=== PATIENT | male | born 1955 | race Caucasian/White ===

== ENCOUNTER → 2018-02-05 13:32 | Outpatient (CLI) | payer BC, SELFPAY ==
--- NOTE | 2018-02-05 13:39 | XR_ITS ---
XR foot LT min 3V HISTORY: ITS.REASON: LEFT GREAT TOE PAIN ORDERING PHYSICIAN: Shravan Damon MD PATIENT AGE: 62 years COMPARISON: None FINDINGS: There are moderate osteoarthritic changes of the first metatarsophalangeal joint. No fracture or dislocation. Normal alignment. IMPRESSION: Moderate osteoarthritis of the first metatarsophalangeal joint
[2018-02-05 13:50] LABS: Microscopic, Urine URINE MICROSCOPIC (MICROSCOPIC)
[2018-02-05 14:05] LABS: Appearance,Urine CLEAR (Clear); Bilirubin,Urine Negative (Negative); Blood, Urine Negative (Negative); Color,Urine YELLOW (Yellow); Glucose,Urine (UA) Negative (Negative); Ketones,Urine Negative (Negative); Leukocyte Esterase,Urine Negative (Negative); Nitrate,Urine Negative (Negative); Protein,Urine Negative (Negative); Specific Gravity, Urine 1.025 (1.005-1.030); Urobilinogen,Urine 0.2 EU/dl (0.2)
[2018-02-05 14:14] LABS: Bacteria,Urine Trace /lpf; RBC,Urine Occasional #/hpf (0-3); Squamous Epithelial Cell,Urine Occasional #/hpf (0-5); WBC,Urine Occasional #/hpf (0-3)
[2018-02-05 14:19] LABS: Basophils # 0.1 K/mm3 (0-0.2); Eosinophils # 0.2 K/mm3 (0.0-0.4); Eosinophils % 2.9 % (0.1-12.0); Hematocrit 47.7 % (42.0-52.0); Lymphocytes # 1.8 K/mm3 (0.7-4.5); Lymphocytes % 24.8 K/mm3 (10-50); Mean Corpuscular HGB Conc 33.6 g/dL (31.8-35.4); Mean Corpuscular Hemoglobin 29.8 pg (27.0-31.2); Mean Corpuscular Volume 88.9 fl (80-94); Monocytes # 0.6 K/mm3 (0.1-1.0); Monocytes % 7.8 % (1.7-9.3); Neutrophils # 4.6 K/mm3 (1.8-7.8); Neutrophils % 63.5 % (37.0-80.0); Platelet Count 252 K/mm3 (142-424); Red Blood Count 5.37 M/mm3 (4.60-6.20); Red Cell Distribution Width 13.8 % (11.5-17.5); White Blood Count 7.2 K/mm3 (4.8-10.8)
[2018-02-05 15:13] LABS: Alanine Aminotransferase 31 U/L (12-78); Albumin Level 3.9 gm/dL (3.4-5.0); Albumin/Globulin Ratio 1.2 (1.1-1.8); Alkaline Phosphatase 115 U/L (46-116); Anion Gap 11.8 mEq/L (5-15); Aspartate Amino Transferase 14 U/L (15-37); Bilirubin,Total 0.5 mg/dL (0.2-1.0); Blood Urea Nitrogen 13 mg/dL (7-18); Calcium 8.9 mg/dL (8.5-10.1); Carbon Dioxide 30 mmol/L (21.0-32.0); Chloride 102 mmol/L (98-107); Creatinine,Serum 1.41 mg/dL (0.70-1.30); Estimated Glomerular Filt Rate 51 ml/min (>60); GFR (African American) 61 ML/MIN (>60); Globulin 3.3 gm/dl (1.3-3.2); Potassium 3.8 mmoL/L (3.5-5.1); Sodium 140 mmol/L (136-145); Total Protein,Serum 7.2 gm/dL (6.4-8.2)
[2018-02-05 15:27] LABS: Glucose 107 mg/dL (74-106)
== END ==
PROVIDERS: PCP Internal Medicine Adolescent Medicine; Visit Provider Internal Medicine Adolescent Medicine
DX: M79.675 Pain in left toe(s) (principal); R31.0 Gross hematuria
CPT/HCPCS: 36415; 73630; 80053; 81001; 85025

== ENCOUNTER → 2019-08-28 12:27 | Outpatient (CLI) | payer BC, SELFPAY ==
[2019-08-28 12:46] LABS: Microscopic, Urine URINE MICROSCOPIC (MICROSCOPIC)
--- NOTE | 2019-08-28 13:04 | XR_ITS ---
PROCEDURE: XR CHEST 2V CLINICAL HISTORY: HTN, PREOP Hypertension COMPARISON: No exams were available for comparison FINDINGS: The cardiomediastinal silhouette and pulmonary vascularity are within normal limits. There is mild pleural thickening in the right apex. Left hemidiaphragm is slightly elevated with mild left basilar atelectasis. The remaining lungs are clear. Degenerative changes of the thoracic spine IMPRESSION: Slightly elevated left hemidiaphragm with left basilar atelectasis Dictated by: Fausto Whitley MD 08/28/2019 14:03 Electronically signed by Fausto Whitley MD in [place] 08/28/2019 14:03
[2019-08-28 13:30] LABS: Basophils # 0.1 K/mm3 (0-0.2); Basophils % 0.8 % (0.1-2.0); Eosinophils # 0.1 K/mm3 (0.0-0.4); Hematocrit 44.4 % (42.0-52.0); Hemoglobin 14.8 g/dL (14.1-18.0); Lymphocytes # 1.5 K/mm3 (0.7-4.5); Lymphocytes % 27.4 % (10-50); Mean Corpuscular HGB Conc 33.4 g/dL (31.8-35.4); Mean Corpuscular Volume 89.8 fl (80-94); Mean Platelet Volume 7.5 fl (7.4-10.4); Monocytes # 0.3 K/mm3 (0.1-1.0); Monocytes % 6.2 % (1.7-9.3); Neutrophils # 3.4 K/mm3 (1.8-7.8); Neutrophils % 63.6 % (37.0-80.0); Platelet Count 229 K/mm3 (142-424); Red Blood Count 4.94 M/mm3 (4.60-6.20); Red Cell Distribution Width 13.6 % (11.5-17.5); White Blood Count 5.4 K/mm3 (4.8-10.8)
[2019-08-28 14:23] LABS: Hemoglobin A1C 5.9 % (4.0-6.0)
[2019-08-28 15:16] LABS: Chloride 98 mmol/L (98-107); Sodium 139 mmol/L (136-145)
[2019-08-28 15:19] LABS: Alanine Aminotransferase 38 U/L (12-78); Albumin Level 4.4 g/dl (3.5-5.0); Albumin/Globulin Ratio 1.8 (1.1-1.8); Alkaline Phosphatase 92 U/L (38-126); Aspartate Amino Transferase 29 U/L (17-59); Bilirubin,Total 0.6 mg/dl (0.2-1.3); Blood Urea Nitrogen 14 mg/dl (9-20); Carbon Dioxide 31 mmol/L (22.0-30.0); Estimated Glomerular Filt Rate 51 ml/min (>60); GFR (African American) 62 ML/MIN (>60); Globulin 2.5 g/dL (1.3-3.2); Glucose 95 mg/dl (74-100); Total Protein,Serum 6.9 g/dl (6.3-8.2)
[2019-08-28 19:04] LABS: Appearance,Urine CLEAR (Clear); Bilirubin,Urine Negative (Negative); Blood, Urine Negative (Negative); Color,Urine YELLOW (Yellow); Glucose,Urine (UA) Negative (Negative); Ketones,Urine Negative (Negative); Leukocyte Esterase,Urine Negative (Negative); Nitrate,Urine Negative (Negative); Protein,Urine Negative (Negative); Specific Gravity, Urine 1.025 (1.005-1.030); Urobilinogen,Urine 0.2 EU/dl (0.2)
[2019-08-28 19:57] LABS: Bacteria,Urine Trace /lpf; Squamous Epithelial Cell,Urine Occasional #/hpf (0-5); WBC,Urine Occasional #/hpf (0-3)
== END ==
PROVIDERS: Orthopaedic Surgery; PCP Internal Medicine Adolescent Medicine; Visit Provider Internal Medicine Adolescent Medicine
DX: Z01.818 Encounter for other preprocedural examination (principal); I10 Essential (primary) hypertension; M25.561 Pain in right knee; S89.91XA Unspecified injury of right lower leg, initial encounter
CPT/HCPCS: 36415; 71046; 80053; 81001; 83036; 85025

== ENCOUNTER → 2020-01-08 10:51 | Outpatient (CLI) | payer BC, SELFPAY ==
--- NOTE | 2020-01-08 10:56 | XR_ITS ---
PROCEDURE: XR CHEST 2V CLINICAL HISTORY: ACUTE THORACIC MYOFASCIAL STRAIN Stabbing pain. COMPARISON: XR CHEST 2V from 08/28/2019 FINDINGS: No acute bony abnormalities. The cardiomediastinal silhouette and pulmonary vascularity are within normal limits. Atherosclerotic tortuosity of the aortic arch. The lungs are clear without infiltrates, suspicious nodules, or pleural effusions. There is left basilar minimal atelectasis. Osteopenia. Multilevel mild/moderate degenerative thoracic spondylosis. Mildly increased thoracic kyphosis. IMPRESSION: 1. No acute findings. Dictated by: Prachi Madrid 01/08/2020 12:18 Electronically signed by Prachi Madrid in [facility] 01/08/2020 12:18
== END ==
PROVIDERS: PCP Internal Medicine Adolescent Medicine; Visit Provider Internal Medicine Adolescent Medicine
DX: S29.019A Strain of muscle and tendon of unspecified wall of thorax, initial encounter (principal)
CPT/HCPCS: 71046

== ENCOUNTER → 2021-03-22 13:00 | Outpatient (CLI) | payer MEDICARE, OTHER, SELFPAY ==
--- NOTE | 2021-03-22 13:16 | XR_ITS ---
PROCEDURE: XR ACUTE ABDOMEN SERIES CLINICAL INDICATION: LOWER ABD PAIN, FEVER UNSPECIFIED FEVER CAUSE COMPARISON: CR XR CHEST 2V from 01/08/[address] ABDOMEN PELVIS WO CON from 03/22/2021 FINDINGS: Minimal atelectatic change left lung base and right midlung. Upright and supine views of the abdomen demonstrates a few scattered air-fluid levels within large and small bowel. Bowel loops do not appear distended. No free air apparent. No obvious renal calculi or acute bony anomalies. IMPRESSION: Nonspecific bowel gas pattern. No evidence of intestinal obstruction or free air. Mild left basilar and right midlung atelectatic change Dictated by: Fausto Whitley MD 03/22/2021 15:06 Fausto Whitley MD in [facility] 03/22/2021 15:06
--- NOTE | 2021-03-22 13:17 | CT_ITS ---
PROCEDURE: CT ABDOMEN PELVIS WO CON CLINICAL INDICATION: LOWER ABD PAIN, FEVER UNSPECIFIED FEVER CAUSE COMPARISON: No exams were available for comparison TECHNIQUE: Axial images obtained with sagittal and coronal reformats. All CT scans at the facility use one or more dose reduction, viz: automated exposure control, ma/kV adjustment per patient size (including targeted exams where dose is matched to indication, i.e. head), or iterative reconstruction technique. FINDINGS: LOWER THORAX: Minor atelectatic change or fibrosis noted in the left lung base anteriorly. Coronary artery calcification noted. ABDOMEN & PELVIS: There is diffuse fatty liver infiltration. And isodense oval areas present in the right hepatic lobe laterally measuring 3 x 2.5 cm near water density consistent with a cyst. Borderline splenomegaly at 13 cm. Small hiatal hernia. The adrenal glands and pancreas have an unremarkable appearance. There are bilateral renal cysts measuring up to 4 cm on the right and 1.2 cm on the left. No renal or ureteral calculi. No hydronephrosis. There are small periaortic lymph nodes. No intestinal obstruction or free air. No evidence of appendicitis. There is colonic diverticulosis but no evidence of diverticulitis. Diverticula are present from the splenic flexure through the sigmoid region. No pelvic mass or abnormal fluid collection. No acute bony findings. IMPRESSION: 1. No acute finding. 2. Fatty liver with 3 cm hepatic cyst 3. Bilateral renal cysts 4. Colonic diverticulosis. No evidence of diverticulitis. Dictated by: Fausto Whitley MD 03/22/2021 14:47 Fausto Whitley MD in [place] 03/22/2021 14:47
[2021-03-22 13:22] LABS: Basophils % 1.1 % (0.1-2.0); Eosinophils # 0.1 K/mm3 (0.0-0.4); Eosinophils % 2.5 % (0.1-12.0); Hematocrit 48.6 % (42.0-52.0); Hemoglobin 16.6 g/dL (14.1-18.0); Lymphocytes % 27.1 % (10-50); Mean Corpuscular HGB Conc 34.1 g/dL (31.8-35.4); Mean Corpuscular Hemoglobin 30.9 pg (27.0-31.2); Mean Corpuscular Volume 90.6 fl (80-94); Mean Platelet Volume 7.6 fl (7.4-10.4); Monocytes # 0.4 K/mm3 (0.1-1.0); Monocytes % 10.3 % (1.7-9.3); Neutrophils # 2.2 K/mm3 (1.8-7.8); Neutrophils % 58.9 % (37.0-80.0); Platelet Count 208 K/mm3 (142-424); Red Blood Count 5.36 M/mm3 (4.60-6.20); Red Cell Distribution Width 13.7 % (11.5-17.5); White Blood Count 3.8 K/mm3 (4.8-10.8)
[2021-03-22 13:46] LABS: Alanine Aminotransferase 43 U/L (12-78); Albumin/Globulin Ratio 1.5 (1.1-1.8); Alkaline Phosphatase 101 U/L (38-126); Amylase 57 U/L (30-110); Anion Gap 12.8 mEq/L (5-15); Aspartate Amino Transferase 40 U/L (17-59); Bilirubin,Total 0.4 mg/dl (0.2-1.3); Blood Urea Nitrogen 11 mg/dl (9-20); Calcium 8.9 mg/dl (8.4-10.2); Carbon Dioxide 27 mmol/L (22.0-30.0); Chloride 102 mmol/L (98-107); Estimated Glomerular Filt Rate 75 ml/min (>60); GFR (African American) 90 ML/MIN (>60); Globulin 2.6 g/dL (1.3-3.2); Glucose 112 mg/dl (74-100); Lipase 69 U/L (23-300); Potassium 3.8 mmoL/L (3.5-5.1); Sodium 138 mmol/L (136-145); Total Protein,Serum 6.6 g/dl (6.3-8.2)
== END ==
PROVIDERS: Visit Provider Internal Medicine Adolescent Medicine
DX: R10.30 Lower abdominal pain, unspecified (principal); R50.9 Fever, unspecified
CPT/HCPCS: 36415; 74021; 74176; 80053; 82150; 83690; 85025

== ENCOUNTER → 2022-01-13 08:02 | Outpatient (CLI) | payer MEDICARE, OTHER, SELFPAY ==
--- NOTE | 2022-01-13 08:08 | US_ITS ---
FINAL REPORT CLINICAL HISTORY: PERSONAL HISTORY OF NICOTINE DEPENDENCE FINDINGS: Sonographic images were obtained of the abdominal aorta. The abdominal aorta measures up to 2.1 cm in greatest dimensions. The common iliac arteries are within normal limits. IMPRESSION: No evidence of abdominal aortic aneurysm. Reviewed, Interpreted and Dictated by Jovanny Christensen III, MD Transcribed by Zach Sims Authenticated and [facility]
== END ==
PROVIDERS: PCP Internal Medicine Adolescent Medicine; Visit Provider Internal Medicine Adolescent Medicine
DX: I71.4 Abdominal aortic aneurysm, without rupture (principal); Z87.891 Personal history of nicotine dependence
CPT/HCPCS: 76770

== ENCOUNTER → 2022-01-30 10:53 | Outpatient (CLI) | payer MEDICARE, OTHER, SELFPAY | PROVIDERS: PCP Internal Medicine Adolescent Medicine; Visit Provider Internal Medicine | DX: Z01.812 Encounter for preprocedural laboratory examination (principal); Z20.822 Contact with and (suspected) exposure to COVID-19; Z12.11 Encounter for screening for malignant neoplasm of colon | CPT/HCPCS: C9803; U0003; U0005 ==

== ENCOUNTER 2022-02-02 08:49 | Day surgery (SDC) | payer MEDICARE, OTHER, SELFPAY ==
[2022-01-31 10:07] VITALS: BMI 31.2
[2022-02-02] VITALS (10 sets, daily range): BP systolic 96–131; BP diastolic 49–85; PULSE 54–88; RESP 16–18; TEMP 36.4–36.6; O2SAT 93–99
--- NOTE | 2022-02-02 09:32 | EXP.ANES.CKL ---
PFSH PFSH Social History Smoking Status: Current some day smoker tobacco type: cigars alcohol intake: current substance use type: denies use current occupational status: employed and disabled household members: none housing: house current occupational exposures/hazards: No caffeine: Yes
--- NOTE | 2022-02-02 09:49 | HMH.SCOPE ---
Procedure: Date: 02/02/22 Patient Date of :: 1955 Procedure Performed:: Colonoscopy Indications:: History of polyps Performing Provider:: Jacob Estrada MD Referring Provider:: Christopher Damon MD Sedation:: See RN notes Procedure:: After placing the patient in the left lateral decubitus position, the colonoscopy was gently inserted into the rectum and under direct visualization advanced to the cecum which was identified by transillumination in the right lower quadrant, identification of the ileocecal valve, appendiceal orifice, and cecal strap. Color, texture, mucosa, and anatomy of the colon were carefully examined with the scope. Findings:: Anal canal: normal Rectum: Internal hemorrhoids Sigmoid colon: Diverticulosis. Sessile polyp 4 mm in size. Removed with cold snare polypectomy. Fair preparation Descending colon: Fair preparation Splenic flexure: normal Transverse colon: normal without polyps or inflammatory changes Hepatic flexure: normal Ascending colon: normal without polyps or inflammatory changes Cecum: normal Terminal ileum: not visualized Recommendations:: Await pathology results Higher fiber diet Repeat colonoscopy in 5 years Complications:: Complications Estimated blood obtained (mL): 0
--- NOTE | 2022-02-02 10:35 | XR_ITS ---
FINAL REPORT CLINICAL HISTORY: r/o aspiration post op COMPARISON: March 22, 2021 FINDINGS: SINGLE VIEW CHEST. The heart is normal in size. The mediastinum is unremarkable. There are some mild chronic changes at the lung bases. The lungs are otherwise clear. There is no pneumothorax. IMPRESSION: No acute process. Reviewed, Interpreted and Dictated by Inder Leon MD Transcribed by Margy Llanos Authenticated and [facility]
--- NOTE | 2022-02-02 10:57 | SUR.PHASEII ---
1035 - ANDRZEJ Geiger @ bedside to check on patient. Pt w/ occasional cough w/ thin sputum noted. Pt did vomit while coming back to post-op area, Fely aware of this. Gave okay for portable CXR to be obtained. MD at bedside and made aware of this as well. Pt currently sitting up in bed @ this time. No needs/ complaints voiced. Continues to have occasional cough.
--- NOTE | 2022-02-02 11:34 | SUR.PHASEII ---
Awaiting results of cxr, pt sitting up in chair at side of bed. No needs voiced. Drinking water, tolerating well.
== END 2022-02-02 11:37 | disposition home or self-care (01) ==
PROVIDERS: PCP Internal Medicine Adolescent Medicine; Visit Provider Internal Medicine
PROC: 0DJD8ZZ Inspection of Lower Intestinal Tract, Via Natural or Artificial Opening Endoscopic (ICD-10-PCS; CPT 45378; principal; 2022-02-02 09:30)
DX: Z12.11 Encounter for screening for malignant neoplasm of colon (principal); K63.5 Polyp of colon; Z86.010 Personal history of colon polyps; I10 Essential (primary) hypertension; K21.9 Gastro-esophageal reflux disease without esophagitis; Z72.0 Tobacco use
CPT/HCPCS: 45385; 71045; 88305

== ENCOUNTER 2024-03-25 13:56 | Observation (INO) | payer MEDICARE, SELFPAY ==
[2024-03-25] VITALS (12 sets, daily range): BP systolic 86–133; BP diastolic 52–93; PULSE 76–90; RESP 12–24; TEMP 36.4–36.6; O2SAT 94–100; BMI 30.4
--- NOTE | 2024-03-25 14:09 | ECG_ITS ---
APPROVED REPORT Exam: Resting ECG HR:89 bpm ECG Measurements Heart Rate 89 AXES SC 159 P 9 QRSd 105 QRS 15 QT 360 T 58 QTc 407 Conclusion SINUS RHYTHM POSSIBLE INFERIOR MYOCARDIAL INFARCTION , PROBABLY OLD [30 ms Q WAVE IN II/aVF] BORDERLINE ECG Electronically signed by : YUSEF NGUYỄN, 03/25/2024 23:19:08
--- NOTE | 2024-03-25 14:28 | ED_ITS ---
<Statement entered by Lucia Ryan DO - 03/25/24 16:39> I was consulted by the JAYY, and we discussed the complexity of the problems being addressed. I approved the treatment and management plan for this patient's care in the emergency department, thus performing a substantive portion of the medical decision making. Lucia Ryan DO Discharge Plan Disposition Patient Disposition: Admitted Condition: Critical Chief Complaint: Weakness Prescriptions Prescriptions: No Action losartan-hydrochlorothiazide 1 EACH tablet 1 each PO DAILY loratadine 10 MG tablet 10 mg PO DAILY Referrals Follow up/Referrals: Shravan Damon MD [Primary Care Provider] - See instructions Clinical Impressions Clinical Impression: Hyperosmolar hyperglycemic state (HHS), Hyponatremia, LIBIA (acute kidney injury) Print Language Print Language: Persian Discharge ED Provider: Lucia Ryan General Adult HPI <DARIELA Tidwell - Last Filed: 03/25/24 15:58> General Chief complaint: Weakness Stated complaint: weakness, cant hold down food, dry mouth Time Seen by Provider: 03/25/24 14:28 Mode of Arrival: Wheelchair Source of Information: Patient Limitations: No Limitations Description of Symptoms (Recalled from ER Triage Doc. by RN): pt c/o dry mouth, unable to eat because food does not taste good, and a wet cough. pt was dx with R lobe PNA last week in Dr. Canales office. pt states ever since he has had issues with food. pt states water makes his mouth dry. pt appears SOA. pt states he has a f/u with Dr. Damon today for the PNA AT 1415 but decided to come to the ER instead once he arrived to the hospital. pt has a hx of 3 cardiac stents. History of Present Illness HPI narrative: Patient here for evaluation of generalized weakness. Patient saw his PCP last Monday and was diagnosed clinically with pneumonia but no lab work or chest x- ray was done. He was put on antibiotics and steroids. Patient reported that he has had progressive difficulty with eating feeling weak with malaise. He he reports polyuria polydipsia as well but no fever chest pain chills shortness of breath hemoptysis hematochezia melena hematemesis hematuria. He has no known history of diabetes mellitus but reportedly has a history of coronary artery disease status post stent placement and heart failure . Related Data Home Medications ?Medication ?Instructions ?Recorded ?Confirmed loratadine 10 mg tablet 10 mg PO DAILY Allergy symptoms 01/31/22 02/02/22 losartan 50 mg-hydrochlorothiazide 1 each PO DAILY High blood pressure 01/31/22 02/02/22 12.5 mg tablet Allergies Allergy/AdvReac Type Severity Reaction Status Date / Time No Known Allergies Allergy Verified 03/25/24 14:13 [facility] <DARIELA Tidwell - Last Filed: 03/25/24 15:58> [facility] Disclaimer: The information contained in this section may have been updated after the patient was seen, as this information can be updated by other users. Medical History Cholecystectomy planned Colonoscopy planned Skin cancer Arthritis Anxiety Hypertension Surgical History H/O arthroscopy of shoulder H/O arthroscopy of knee Family History No significant family history Social History Smoking Status: Current every day smoker tobacco type: cigars alcohol intake: current alcohol intake frequency: a few times a month substance use type: denies use current occupational status: employed and disabled Travel in the last 8 weeks: None household members: none housing: house current occupational exposures/hazards: No caffeine: Yes Other Medical History Have you received the Flu Vaccine for this season: Yes Have you received the Pneumonia Vaccine: Yes <DARIELA Tidwell - Last Filed: 03/25/24 15:58> ROS Obtained: Yes Systems reviewed as appropriate & no additional complaints except as documented Physical Exam <DARIELA Tidwell - Last Filed: 03/25/24 15:58> General General appearance: alert and in no apparent distress Respiratory Respiratory exam: Present normal lung sounds bilaterally Cardiovascular Cardiovascular exam: Present regular rate Neurological Exam Neurological exam: Present alert and oriented X3 Medical Decision Making <DARIELA Tidwell - Last Filed: 03/25/24 15:58> Medical Records Medical records reviewed: Yes I reviewed the patient's medical records. Screening: Per USPSTF and CDC recommendations, given the prevalence of disease in our region, it is our hospital?s policy to screen for HIV and viral Hepatitis for all patients aged 18 and over and those with ongoing risk factors. Damian Inquiry Pt receiving controlled substance: No Vital Signs: 03/25/24 14:07 03/25/24 14:31 03/25/24 15:00 Temperature 97.6 F Temperature Source Temporal Artery Scan Pulse Rate 89 86 Pulse Rate [Left] 90 Respiratory Rate 22 18 12 Blood Pressure 118/68 126/83 Blood Pressure [Right Arm] 133/79 Blood Pressure Mean [Right Arm] 97 Blood Pressure Source [Right Arm] Automatic Cuff Blood Pressure Position [Right Arm] Sitting 02 Sat by Pulse Oximetry 98 98 98 Oxygen Delivery Method Room Air Room Air Room Air 03/25/24 15:30 Temperature Temperature Source Pulse Rate 88 Pulse Rate [Left] Respiratory Rate 17 Blood Pressure 104/68 L Blood Pressure [Right Arm] Blood Pressure Mean [Right Arm] Blood Pressure Source [Right Arm] Blood Pressure Position [Right Arm] 02 Sat by Pulse Oximetry 94 L Oxygen Delivery Method Room Air Lab Data Lab results reviewed: Yes I reviewed the patient's lab results. Lab Results 03/25/24 14:10: WBC 13.0 H, RBC 5.30, Hgb 16.8, Hct 49.9, MCV 94.1 H, MCH 31.7 H , MCHC 33.7, RDW 12.7, Plt Count 313, MPV 8.3, Neut % (Auto) 85.4 H, Lymph % (Auto) 9.9 L, [place] % (Auto) 4.2, Eos % (Auto) 0.3, Baso % (Auto) 0.2, Neut # (Auto) 11.1 H, Lymph # (Auto) 1.3, [place] # (Auto) 0.6, Eos # (Auto) 0.0, Baso # (Auto) 0.0, Sodium 120 L, Potassium 5.4 H, Chloride 85 L, Carbon Dioxide 17 L, A nion Gap 23.4 H, BUN 62 H, Creatinine 1.70 H, Estimated Creat Clear 55, E stimated GFR 40 L, Est GFR ( Amer) 48 L, Glucose 832 H*, Calcium 9.7, M agnesium 2.7 H, Total Bilirubin 1.0, AST 29, ALT 38, Alkaline Phosphatase 157 H, Troponin I < 0.01, NT-Pro-B Natriuret Pep 94.3, Total Protein 7.3, Albumin 4.4, Globulin 2.9, Albumin/Globulin Ratio 1.5, Acetone Level None detected 03/25/24 15:35: VBG pH 7.40, VBG pCO2 25.9 L, VBG pO2 61.3 H, VBG HCO3 15.6 L, V BG Total CO2 16.4 L, VBG O2 Saturation 90.8 H, VBG Base Excess -9.2 L, VBG Lactic Acid 3.2 H 03/25/24 14:10 03/25/24 14:10 Orders (Tests/Meds): ED MEDICATIONS Generic Name Dose Route Start Last Admin Trade Name Freq PRN Reason Stop Dose Admin Dextrose 50 ml 03/25/24 15:44 Dextrose 50% 50ml Syringe (Crash Cart) IVP 04/24/24 15:43 NEEDED PRN Per DKA Protocol Sodium Chloride 1,000 mls @ 150 mls/hr 03/25/24 17:30 Sod Chlor 0.9% 1000ml Bag IV 04/24/24 17:29 .Q6H40M ROBIN Sodium Chloride 2,000 mls @ 999 mls/hr 03/25/24 15:30 03/25/24 15:48 Sod Chlor 0.9% 1000ml Bag IV 03/25/24 19:30 999 mls/hr .Q2H1M ROBIN Administration Insulin Human Regular 100 unit 101 mls @ 5.05 mls/hr 03/25/24 15:30 / Sodium Chloride IV 04/24/24 15:29 .Q20H ROBIN Protocol 5 UNIT/HR Discontinued Medications Generic Name Dose Route Start Last Admin Trade Name Freq PRN Reason Stop Dose Admin Insulin Human Regular 10 unit 03/25/24 15:25 Insulin Human Regular 100 Units/Ml 10ml Vial IVP 03/25/24 15:26 ONCE ONE ORDERS Category Date Time Status Nutrition Consult [CONS] Routine Cons 03/25/24 15:46 Active Chest XR 2 view (NOT portable) [XR chest 2V] Stat Exams 03/25/24 14:40 Taken Acetone, Serum (Rapid) Stat Lab 03/25/24 14:10 Completed BNP [NT Pro Brain Natriuretic Pep.] Stat Lab 03/25/24 14:10 Completed Basic Metabolic Panel Q4H Lab 03/25/24 16:00 Ordered Basic Metabolic Panel Q4H Lab 03/25/24 20:00 Ordered Basic Metabolic Panel Q4H Lab 03/26/24 00:00 Ordered Basic Metabolic Panel Q4H Lab 03/26/24 04:00 Ordered Basic Metabolic Panel Q4H Lab 03/26/24 08:00 Ordered Basic Metabolic Panel Q4H Lab 03/26/24 12:00 Ordered CBC w/Auto Diff [Complete Blood Count Auto Diff] Stat Lab 03/25/24 14:10 Results CMP [Comprehensive Metabolic Panel] Stat Lab 03/25/24 14:10 Completed HIV (1&2) Antibody Rapid Stat Lab 03/25/24 14:10 Received Hemoglobin A1C Stat Lab 03/25/24 Received Hep C Ab with Reflex to RNA Stat Lab 03/25/24 14:10 Received Lactic Acid Stat Lab 03/25/24 14:40 Ordered Magnesium Q4H Lab 03/25/24 16:00 Ordered Magnesium Q4H Lab 03/25/24 20:00 Ordered Magnesium Q4H Lab 03/26/24 00:00 Ordered Magnesium Q4H Lab 03/26/24 04:00 Ordered Magnesium Q4H Lab 03/26/24 08:00 Ordered Magnesium Q4H Lab 03/26/24 12:00 Ordered Magnesium Stat Lab 03/25/24 14:10 Completed Phosphorous Q4H Lab 03/25/24 16:00 Ordered Phosphorous Q4H Lab 03/25/24 20:00 Ordered Phosphorous Q4H Lab 03/26/24 00:00 Ordered Phosphorous Q4H Lab 03/26/24 04:00 Ordered Phosphorous Q4H Lab 03/26/24 08:00 Ordered Phosphorous Q4H Lab 03/26/24 12:00 Ordered Phosphorous Stat Lab 03/25/24 14:10 Received Thyroid Stimulating Hormone Routine Lab 03/25/24 15:51 Ordered Trop I [Troponin I] Stat Lab 03/25/24 14:10 Completed Troponin I Q3H Lab 03/25/24 15:48 Ordered Troponin I Q3H Lab 03/25/24 20:45 Ordered UA [Urinalysis and Microscopic] Stat Lab 03/25/24 15:41 Ordered Blood Culture Stat Micro 03/25/24 14:10 Ordered Urine Culture Stat Micro 03/25/24 15:39 Received VBG [Venous Blood Gas] Stat RT 03/25/24 15:40 Ordered Venous Blood Gas Stat RT 03/25/24 15:35 Completed Medical Decision Narrative: In summary patient is a 69-year-old male who presents to the emergency department for evaluation of weakness polyuria polydipsia. Patient is normotensive with an O2 sat of 98% on room air respiratory rate of 22 pulse of 90 respiratory rate of 22 upon arrival, afebrile. Physical exam is remarkable for dry mucous membranes, clear breath sounds in all 4 maya, normal heart sounds, no dependent edema noted.. Differential diagnosis includes hyperglycemia versus viral versus bacterial infection versus UTI etc. Initial workup will be conducted with hematologic labs chest x-ray full respiratory swab urinalysis. Initial interventions include crystalloid bolus. Initial workup reviewed by me shows the patient has several hematologic derangements with hyponatremia hyperkalemia anion gap acidosis without ketosis LIBIA hyperglycemia and my informal interpretation of his plain from chest x-ray shows no acute processes. Given this I had an interactive discussion with hospital medicine regarding patient management, I have started the patient on hyperglycemia protocol (DKA without ketosis) and patient will be admitted for further evaluation and care. <Lucia Ryan, DO - Last Filed: 03/25/24 15:31> Vital Signs: 03/25/24 14:07 03/25/24 14:31 03/25/24 15:00 Temperature 97.6 F Temperature Source Temporal Artery Scan Pulse Rate 89 86 Pulse Rate [Left] 90 Respiratory Rate 22 18 12 Blood Pressure 118/68 126/83 Blood Pressure [Right Arm] 133/79 Blood Pressure Mean [Right Arm] 97 Blood Pressure Source [Right Arm] Automatic Cuff Blood Pressure Position [Right Arm] Sitting 02 Sat by Pulse Oximetry 98 98 98 Oxygen Delivery Method Room Air Room Air Room Air 03/25/24 15:30 Temperature Temperature Source Pulse Rate 88 Pulse Rate [Left] Respiratory Rate 17 Blood Pressure 104/68 L Blood Pressure [Right Arm] Blood Pressure Mean [Right Arm] Blood Pressure Source [Right Arm] Blood Pressure Position [Right Arm] 02 Sat by Pulse Oximetry 94 L Oxygen Delivery Method Room Air Lab Data Lab Results 03/25/24 14:10: WBC 13.0 H, RBC 5.30, Hgb 16.8, Hct 49.9, MCV 94.1 H, MCH 31.7 H , MCHC 33.7, RDW 12.7, Plt Count 313, MPV 8.3, Neut % (Auto) 85.4 H, Lymph % (Auto) 9.9 L, [place] % (Auto) 4.2, Eos % (Auto) 0.3, Baso % (Auto) 0.2, Neut # (Auto) 11.1 H, Lymph # (Auto) 1.3, [place] # (Auto) 0.6, Eos # (Auto) 0.0, Baso # (Auto) 0.0, Sodium 120 L, Potassium 5.4 H, Chloride 85 L, Carbon Dioxide 17 L, A nion Gap 23.4 H, BUN 62 H, Creatinine 1.70 H, Estimated Creat Clear 55, E stimated GFR 40 L, Est GFR ( Amer) 48 L, Glucose 832 H*, Calcium 9.7, M agnesium 2.7 H, Total Bilirubin 1.0, AST 29, ALT 38, Alkaline Phosphatase 157 H, Troponin I < 0.01, NT-Pro-B Natriuret Pep 94.3, Total Protein 7.3, Albumin 4.4, Globulin 2.9, Albumin/Globulin Ratio 1.5, Acetone Level None detected 03/25/24 15:35: VBG pH 7.40, VBG pCO2 25.9 L, VBG pO2 61.3 H, VBG HCO3 15.6 L, V BG Total CO2 16.4 L, VBG O2 Saturation 90.8 H, VBG Base Excess -9.2 L, VBG Lactic Acid 3.2 H Orders (Tests/Meds): ED MEDICATIONS Generic Name Dose Route Start Last Admin Trade Name Freq PRN Reason Stop Dose Admin Dextrose 50 ml 03/25/24 15:44 Dextrose 50% 50ml Syringe (Crash Cart) IVP 04/24/24 15:43 NEEDED PRN Per DKA Protocol Sodium Chloride 1,000 mls @ 150 mls/hr 03/25/24 17:30 Sod Chlor 0.9% 1000ml Bag IV 04/24/24 17:29 .Q6H40M ROBIN Sodium Chloride 2,000 mls @ 999 mls/hr 03/25/24 15:30 03/25/24 15:48 Sod Chlor 0.9% 1000ml Bag IV 03/25/24 19:30 999 mls/hr .Q2H1M ROBIN Administration Insulin Human Regular 100 unit 101 mls @ 5.05 mls/hr 03/25/24 15:30 / Sodium Chloride IV 04/24/24 15:29 .Q20H ROBIN Protocol 5 UNIT/HR Discontinued Medications Generic Name Dose Route Start Last Admin Trade Name Freq PRN Reason Stop Dose Admin Insulin Human Regular 10 unit 03/25/24 15:25 Insulin Human Regular 100 Units/Ml 10ml Vial IVP 03/25/24 15:26 ONCE ONE ORDERS Category Date Time Status Nutrition Consult [CONS] Routine Cons 03/25/24 15:46 Active Chest XR 2 view (NOT portable) [XR chest 2V] Stat Exams 03/25/24 14:40 Taken Acetone, Serum (Rapid) Stat Lab 03/25/24 14:10 Completed BNP [NT Pro Brain Natriuretic Pep.] Stat Lab 03/25/24 14:10 Completed Basic Metabolic Panel Q4H Lab 03/25/24 16:00 Ordered Basic Metabolic Panel Q4H Lab 03/25/24 20:00 Ordered Basic Metabolic Panel Q4H Lab 03/26/24 00:00 Ordered Basic Metabolic Panel Q4H Lab 03/26/24 04:00 Ordered Basic Metabolic Panel Q4H Lab 03/26/24 08:00 Ordered Basic Metabolic Panel Q4H Lab 03/26/24 12:00 Ordered CBC w/Auto Diff [Complete Blood Count Auto Diff] Stat Lab 03/25/24 14:10 Results CMP [Comprehensive Metabolic Panel] Stat Lab 03/25/24 14:10 Completed HIV (1&2) Antibody Rapid Stat Lab 03/25/24 14:10 Received Hemoglobin A1C Stat Lab 03/25/24 Received Hep C Ab with Reflex to RNA Stat Lab 03/25/24 14:10 Received Lactic Acid Stat Lab 03/25/24 14:40 Ordered Magnesium Q4H Lab 03/25/24 16:00 Ordered Magnesium Q4H Lab 03/25/24 20:00 Ordered Magnesium Q4H Lab 03/26/24 00:00 Ordered Magnesium Q4H Lab 03/26/24 04:00 Ordered Magnesium Q4H Lab 03/26/24 08:00 Ordered Magnesium Q4H Lab 03/26/24 12:00 Ordered Magnesium Stat Lab 03/25/24 14:10 Completed Phosphorous Q4H Lab 03/25/24 16:00 Ordered Phosphorous Q4H Lab 03/25/24 20:00 Ordered Phosphorous Q4H Lab 03/26/24 00:00 Ordered Phosphorous Q4H Lab 03/26/24 04:00 Ordered Phosphorous Q4H Lab 03/26/24 08:00 Ordered Phosphorous Q4H Lab 03/26/24 12:00 Ordered Phosphorous Stat Lab 03/25/24 14:10 Received Thyroid Stimulating Hormone Routine Lab 03/25/24 15:51 Ordered Trop I [Troponin I] Stat Lab 03/25/24 14:10 Completed Troponin I Q3H Lab 03/25/24 15:48 Ordered Troponin I Q3H Lab 03/25/24 20:45 Ordered UA [Urinalysis and Microscopic] Stat Lab 03/25/24 15:41 Ordered Blood Culture Stat Micro 03/25/24 14:10 Ordered Urine Culture Stat Micro 03/25/24 15:39 Received VBG [Venous Blood Gas] Stat RT 03/25/24 15:40 Ordered Venous Blood Gas Stat RT 03/25/24 15:35 Completed ECG Data Tracing #1: I reviewed this ECG and interpreted as documented below: Normal sinus rhythm with a ventricular rate of [address] changes concerning for ischemia. Normal intervals ECG initial impression date: 03/25/24 ECG initial impression time: 14:11 Critical Care <DARIELA Tidwell - Last Filed: 03/25/24 15:58> Critical Care Time Critical Care Time: Yes Attestation: On 03/25/24, the high probability of a clinically significant, sudden or life threatening deterioration of the following system(cardiovascular, pulmonary, endocrine) required my full and direct attention, intervention and personal management. The time I documented below is in addition to time spent performing reported procedures but includes the following listed in this critical care notation. Total Time Total Critical Care Time: 30
--- NOTE | 2024-03-25 14:40 | XR_ITS ---
FINAL REPORT CLINICAL HISTORY: Fatigue weakness shortness of breath COMPARISON: 02/03/2024 FINDINGS: TWO-VIEW CHEST The heart size is normal. The mediastinum is normal. There are chronic changes at the bases. There is no pneumothorax. IMPRESSION: No acute cardiopulmonary process. Reviewed, Interpreted and Dictated by Inder Leon MD Transcribed by Brenda Grimes Authenticated and [facility]
[2024-03-25 14:49] LABS: Albumin Level 4.4 g/dl (3.5-5.0); Chloride 85 mmol/L (98-107); Potassium 5.4 mmoL/L (3.5-5.1); Sodium 120 mmol/L (136-145)
[2024-03-25 14:51] LABS: Blood Urea Nitrogen 62 mg/dl (9-20); Creatinine Clearance Estimated 55 mL/min (50-200); Estimated Glomerular Filt Rate 40 ml/min (>60); GFR (African American) 48 ML/MIN (>60)
[2024-03-25 14:52] LABS: Alanine Aminotransferase 38 U/L (12-78); Albumin/Globulin Ratio 1.5 (1.1-1.8); Alkaline Phosphatase 157 U/L (38-126); Anion Gap 23.4 mEq/L (5-15); Aspartate Amino Transferase 29 U/L (17-59); Basophils % 0.2 % (0.1-2.0); Calcium 9.7 mg/dl (8.4-10.2); Carbon Dioxide 17 mmol/L (22.0-30.0); Eosinophils % 0.3 % (0.1-12.0); Globulin 2.9 g/dL (1.3-3.2); Hematocrit 49.9 % (42.0-52.0); Hemoglobin 16.8 g/dL (14.1-18.0); Lymphocytes # 1.3 K/mm3 (0.7-4.5); Lymphocytes % 9.9 % (10-50); Magnesium 2.7 mg/dl (1.6-2.3); Mean Corpuscular HGB Conc 33.7 g/dL (31.8-35.4); Mean Corpuscular Hemoglobin 31.7 pg (27.0-31.2); Mean Corpuscular Volume 94.1 fl (80-94); Mean Platelet Volume 8.3 fl (7.4-10.4); Monocytes # 0.6 K/mm3 (0.1-1.0); Monocytes % 4.2 % (1.7-9.3); Neutrophils # 11.1 K/mm3 (1.8-7.8); Neutrophils % 85.4 % (37.0-80.0); Platelet Count 313 K/mm3 (142-424); Red Cell Distribution Width 12.7 % (11.5-17.5); Total Protein,Serum 7.3 g/dl (6.3-8.2)
[2024-03-25 15:02] LABS: NT Pro Brain Natriuretic Pep. 94.3 pg/mL (0-125)
[2024-03-25 15:05] LABS: MANUAL DIFFERENTIAL MANUAL DIFFERENTIAL (MANUAL DIFF)
[2024-03-25 15:12] LABS: Troponin I < 0.01 ng/ml (0.00-0.034)
[2024-03-25 15:13] LABS: Glucose 832 mg/dl (74-100)
--- NOTE | 2024-03-25 15:13 | PC.NURSE ---
notified of Glucose of 832.
[2024-03-25 15:20] LABS: Acetone, Serum (Rapid) None Detected (None Detect)
[2024-03-25 15:41] LABS: VBG Base Excess -9.2 mmol/L (-2.4-2.3); VBG HCO3 15.6 mmol/L (23-30); VBG Oxygen Saturation 90.8 % (50-70); VBG PCO2 25.9 mmol/L (35-51); VBG PO2 61.3 mmol/L (28-40); VBG Total CO2 16.4 mmol/L (23-27)
[2024-03-25 15:42] LABS: Lactate Venous 3.2 mmol/L (0.4-2.0)
[2024-03-25 15:45] LABS: Phosphorous 5.4 mg/dl (2.5-4.5)
--- NOTE | 2024-03-25 15:47 | PC.NURSE ---
HOUSE AWARE OF ADMISSION
[2024-03-25] MEDS: 0.9 % SODIUM CHLORIDE 1000ML 2,000 ML 999 ML IV (15:48)
--- NOTE | 2024-03-25 15:48 | P.HP_ITS ---
History of Present Illness *Admission Date: 03/25/24 *Reason for visit:: weakness, hyperglycemia *History of present illness: Mr. Pfeiffer is a 69-year-old male with history of hypertension who presented to the ER because of concern for weakness, dry mouth, food not tasting good. States he was diagnosed with a pneumonia last week in the office by his PCP. Started on antibiotics and steroids. Last dose due today. Has just not felt well since. Increased shortness of breath. States he has been urinating frequently during the day and night. Has been very thirsty. On arrival to the ER, found to be tachycardic. Initial labs showing glucose greater than 800 with anion gap. Concern for HHS. Initiated on DKA/HHS protocol with insulin drip. Medicine consulted for admission and further management. On arrival to the floor, patient has received a liter of LR and is currently receiving his second liter. On insulin drip with improvement in glucose. States he is feeling somewhat better but still appears ill. Significant other is at bedside. Patient complaining of dry mouth and eating ice chips. Afebrile. No nausea or vomiting. Denies chest pain or shortness of breath. [facility] Disclaimer: The information contained in this section may have been updated after the patient was seen, as this information can be updated by other users. Medical History (Updated 03/25/24 @ 18:21 by Dawit Maxwell MD) Cholecystectomy planned Colonoscopy planned Skin cancer Arthritis Anxiety Hypertension Surgical History H/O arthroscopy of shoulder H/O arthroscopy of knee Family History Other No significant family history Social History Smoking Status: Current every day smoker tobacco type: cigars alcohol intake: current alcohol intake frequency: a few times a month substance use type: denies use current occupational status: employed and disabled Travel in the last 8 weeks: None household members: none housing: house current occupational exposures/hazards: No caffeine: Yes Other Medical History Have you received the Flu Vaccine for this season: Yes Have you received the Pneumonia Vaccine: Yes Review of Systems Review of Systems Review of systems (narrative): 14 point review of systems performed, pertinent positives and negatives as per HPI Meds Home Medications and Allergies Home Medications ?Medication ?Instructions ?Recorded ?Confirmed ?Type loratadine 10 mg tablet 10 mg PO DAILY Allergy symptoms 01/31/22 03/25/24 History losartan 50 mg-hydrochlorothiazide 1 each PO DAILY High blood pressure 01/31/22 03/25/24 History 12.5 mg tablet New Prescriptions to Start Prescriptions: Allergies Allergy/AdvReac Type Severity Reaction Status Date / Time No Known Allergies Allergy Verified 03/25/24 14:13 Exam Data for Last 24 hours Vital signs and Labs for Last 24 Hours: Temp Pulse Resp BP Pulse Ox O2 Del Method 97.6 F 89 18 118/68 98 Room Air 03/25/24 14:07 03/25/24 14:31 03/25/24 14:31 03/25/24 14:31 03/25/24 14:31 03/25/24 14:31 Laboratory Results - last 24 hr 03/25/24 14:10: WBC 13.0 H, RBC 5.30, Hgb 16.8, Hct 49.9, MCV 94.1 H, MCH 31.7 H , MCHC 33.7, RDW 12.7, Plt Count 313, MPV 8.3, Neut % (Auto) 85.4 H, Lymph % (Auto) 9.9 L, Roosevelt % (Auto) 4.2, Eos % (Auto) 0.3, Baso % (Auto) 0.2, Neut # (Auto) 11.1 H, Lymph # (Auto) 1.3, Roosevelt # (Auto) 0.6, Eos # (Auto) 0.0, Baso # (Auto) 0.0, Sodium 120 L, Potassium 5.4 H, Chloride 85 L, Carbon Dioxide 17 L, Anion Gap 23.4 H, BUN 62 H, Creatinine 1.70 H, Estimated Creat Clear 55, Estimated GFR 40 L, Est GFR ( Amer) 48 L, Glucose 832 H*, Calcium 9.7, Magnesium 2.7 H, Total Bilirubin 1.0, AST 29, ALT 38, Alkaline Phosphatase 157 H , Troponin I < 0.01, NT-Pro-B Natriuret Pep 94.3, Total Protein 7.3, Albumin 4.4, Globulin 2.9, Albumin/Globulin Ratio 1.5, Acetone Level None detected 03/25/24 15:35: VBG pH 7.40, VBG pCO2 25.9 L, VBG pO2 61.3 H, VBG HCO3 15.6 L, VBG Total CO2 16.4 L, VBG O2 Saturation 90.8 H, VBG Base Excess -9.2 L, VBG Lactic Acid 3.2 H I & O for Last 24 hours: Intake & Output 03/22/24 03/23/24 03/24/24 03/25/24 23:59 23:59 23:59 23:59 Weight 96.162 kg Constitutional Constitutional: mild distress, obese, chronically ill appearing and cooperative *Routine HEENT Exam Head: Present normocephalic Eye: Present EOMI and PERRL ENT: Present mucous membranes moist Comments: Scar along left cheek *Routine Neck Exam Neck: Present supple; Absent lymphadenopathy *Routine Respiratory Exam Respiratory: Present CTA bilaterally; Absent rhonchi, wheezes or crackles *Routine Cardiovascular Exam Cardiovascular: Present RRR *Routine Abdominal Exam Abdominal: Present soft and normoactive bowel sounds; Absent tenderness *Routine Rectal Exam Rectal:: deferred *Routine Genitalia Exam Genitalia:: deferred *Routine Extremities Exam Extremities: Absent cyanosis, clubbing or edema *Routine Skin Exam Skin: Present warm; Absent rash *Routine Neurological Exam Neurological: Present alert, oriented X3 and moving all extremities; Absent altered mental status Assessment and Plan *Assessment and plan (1) Hyperosmolar hyperglycemic state (HHS): Status: Acute Category: Medical Code(s): E11.00 - Type 2 diabetes mellitus with hyperosmolarity without nonketotic hyperglycemic-hyperosmolar coma (NKHHC) (2) Newly diagnosed diabetes: Status: Acute Category: Medical Code(s): E11.9 - Type 2 diabetes mellitus without complications (3) Hyponatremia: Status: Acute Category: Medical Code(s): E87.1 - Hypo-osmolality and hyponatremia (4) LIBIA (acute kidney injury): Status: Acute Category: Medical Code(s): N17.9 - Acute kidney failure, unspecified (5) Hypertension: Status: Chronic Category: Medical Code(s): I10 - Essential (primary) hypertension Plan 69-year-old male with no known history of diabetes who presented with HHS. Discussed case with ER physician, request admission for insulin drip and further correction of his metabolic disturbances. I agreed to admit for further management. Showing some improvement in his glucose by the time of arrival to the floor though still elevated on fingerstick above 500. No nausea or vomiting. Stable on room air. A1c returned greater than 14, diagnostic for diabetes. Admitted to ICU for further management given significant metabolic disturbances and insulin drip protocol. Problems addressed as follows: Hyperosmolar hyperglycemic syndrome New diagnosis of diabetes Pseudohyponatremia High anion gap -Glucose greater than 800, anion gap 23, sodium 120. Will monitor BMP every 4 hours. -Continue insulin drip per protocol. Close monitoring of electrolytes given likelihood of electrolyte shifts as acid-base disturbance corrects -Potassium above 5. No replacement at this time. Close monitoring for replacement -Continue NS IV per protocol. -A1c greater than 14. Repeat CBC, magnesium ordered for the morning. Phosphorus every 4 hours with BMP. -Will initiate insulin glargine 20 units tonight. Initiate metformin 500 mg twice daily and Jardiance 10 mg in the morning. Will make further adjustments to regimen prior to discharge home -Nutrition consulted for the morning for dietary counseling - White count elevated at 13, suspect reactive in the setting of diabetes. Chest imaging reviewed, no pneumonia per my review of x-ray. Will hold on further antibiotics. - Sodium 121, suspect pseudohyponatremia in the setting of hyperglycemia. Monitor closely for improvement with correction of hyperglycemia LIBIA: BUN 62, creatinine 1.7. Baseline appears to be normal. Monitor for improvement with fluid resuscitation. Suspect prerenal. Hypertension at home. On lisinopril. In the setting of LIBIA and normotensive state, will hold on medications. Reevaluate daily pending improvement in kidney function and improvement in blood pressure. Obesity complicates all of his care. Full code Diabetic diet Lovenox 40 mg subcu daily
--- NOTE | 2024-03-25 15:52 | PC.NURSE ---
coco weiner at bs
[2024-03-25] MEDS: INSULIN HUMAN REGULAR 100 UNITS/ML 10ML VIAL 10 UNIT IVP (15:55)
[2024-03-25] MEDS: INSULIN REGULAR, HUMAN 100 UNIT in 0.9 % SODIUM CHLORIDE 100 ML 9.09 UNIT IV (15:55)
--- NOTE | 2024-03-25 16:20 | PC.NURSE ---
Report called to Amena MANNING
[2024-03-25 16:21] LABS: Chloride 89 mmol/L (98-107); Sodium 121 mmol/L (136-145)
[2024-03-25 16:22] LABS: Potassium 5.8 mmoL/L (3.5-5.1)
[2024-03-25 16:24] LABS: Anion Gap 20.8 mEq/L (5-15); Blood Urea Nitrogen 62 mg/dl (9-20); Carbon Dioxide 17 mmol/L (22.0-30.0); Creatinine Clearance Estimated 55 mL/min (50-200); Estimated Glomerular Filt Rate 40 ml/min (>60); GFR (African American) 48 ML/MIN (>60)
[2024-03-25 16:25] LABS: Calcium 9.3 mg/dl (8.4-10.2); Magnesium 2.7 mg/dl (1.6-2.3); Phosphorous 5.2 mg/dl (2.5-4.5)
--- NOTE | 2024-03-25 16:41 | PC.NURSE ---
arrived by w/c from ED
[2024-03-25 17:15] LABS: Glucose 774 mg/dl (74-100)
[2024-03-25 17:24] LABS: Hemoglobin A1C > 14.0 % (4.0-6.0)
[2024-03-25] MEDS: 0.9 % SODIUM CHLORIDE 1000ML 1,000 ML 150 ML IV (17:43)
[2024-03-25 17:56] LABS: Anisocytosis 1+; Lymphocytes % 12 % (10-50); Macrocytosis 1+; Microcytosis 1+; Monocytes % 7 % (2-9); Neutrophils % 80 % (42-76); Platelet Estimate Normal; Total Cells Counted 100
[2024-03-25 18:44] LABS: Lactic Acid 2.7 mmol/L (0.7-2.1)
[2024-03-25 18:59] LABS: Troponin I 0.02 ng/ml (0.00-0.034)
[2024-03-25 19:19] LABS: POC Glucose,Bedside 450 (70-110)
[2024-03-25 19:19] LABS: POC Glucose,Bedside 393 (70-110)
[2024-03-25 19:43] LABS: Reflex Lactic Add Lactic Reflex
[2024-03-25] MEDS: INSULIN GLARGINE 100 UNITS/ML 3ML FLEXPEN 20 UNIT SQ (20:10)
[2024-03-25 20:19] LABS: POC Glucose,Bedside 369 (70-110)
[2024-03-25 20:46] LABS: Chloride 100 mmol/L (98-107)
[2024-03-25 20:47] LABS: Potassium 4.3 mmoL/L (3.5-5.1); Sodium 128 mmol/L (136-145)
[2024-03-25 20:49] LABS: Anion Gap 12.3 mEq/L (5-15); Blood Urea Nitrogen 53 mg/dl (9-20); Carbon Dioxide 20 mmol/L (22.0-30.0); Creatinine Clearance Estimated 78 mL/min (50-200); Estimated Glomerular Filt Rate 60 ml/min (>60); GFR (African American) 72 ML/MIN (>60)
[2024-03-25 20:50] LABS: Calcium 8.5 mg/dl (8.4-10.2); Glucose 372 mg/dl (74-100); Lactic Acid Follow Up (RFLX 1) 1.7 mmol/L (0.7-2.1); Magnesium 2.5 mg/dl (1.6-2.3); Phosphorous 3.6 mg/dl (2.5-4.5)
[2024-03-25 21:06] LABS: Troponin I < 0.01 ng/ml (0.00-0.034)
[2024-03-25 21:16] LABS: POC Glucose,Bedside 284 (70-110)
[2024-03-25 22:17] LABS: HIV (1&2) Antibody Rapid NONREACTIVE (NONREACTIVE)
[2024-03-25 22:22] LABS: POC Glucose,Bedside 234 (70-110)
[2024-03-25 23:41] LABS: POC Glucose,Bedside 182 (70-110)
[2024-03-26] VITALS (8 sets, daily range): BP systolic 92–127; BP diastolic 51–65; PULSE 73–87; RESP 12–18; TEMP 36.4–36.6; O2SAT 94–99; BMI 28.2; BMI 28.1
[2024-03-26 00:26] LABS: POC Glucose,Bedside 127 (70-110)
[2024-03-26 00:31] LABS: Anion Gap 3.1 mEq/L (5-15); Blood Urea Nitrogen 47 mg/dl (9-20); Calcium 8.5 mg/dl (8.4-10.2); Carbon Dioxide 25 mmol/L (22.0-30.0); Chloride 104 mmol/L (98-107); Creatinine Clearance Estimated 85 mL/min (50-200); Estimated Glomerular Filt Rate 66 ml/min (>60); GFR (African American) 80 ML/MIN (>60); Glucose 130 mg/dl (74-100); Magnesium 2.4 mg/dl (1.6-2.3); Phosphorous 2.9 mg/dl (2.5-4.5); Potassium 4.1 mmoL/L (3.5-5.1); Sodium 128 mmol/L (136-145)
[2024-03-26 00:46] LABS: Microscopic, Urine URINE MICROSCOPIC (MICROSCOPIC)
[2024-03-26] MEDS: 0.9 % SODIUM CHLORIDE 1000ML 1,000 ML 75 ML IV (00:47)
[2024-03-26 00:49] LABS: Appearance,Urine CLEAR (Clear); Bilirubin,Urine Negative (Negative); Blood, Urine Negative (Negative); Color,Urine YELLOW (Yellow); Glucose,Urine (UA) 3+ (Negative); Ketones,Urine Negative (Negative); Leukocyte Esterase,Urine Negative (Negative); Nitrate,Urine Negative (Negative); Protein,Urine Negative (Negative); Urobilinogen,Urine 0.2 EU/dl (0.2)
[2024-03-26 01:02] LABS: Bacteria,Urine Trace /lpf; Hyaline Casts,Urine Occasional #/lpf (0)
--- NOTE | 2024-03-26 01:18 | PC.NURSE ---
Insulin gtt has been turned off and maintenance fluids changed per AUG. Next FSBS will be starting at 0600 for ACHS. Patient is tolerating PO fluids and jello per diabetic diet.
[2024-03-26 03:31] LABS: Thyroid Stimulating Hormone 0.35 uIU/mL (0.465-4.68)
--- NOTE | 2024-03-26 04:23 | PC.NURSE ---
Patient has rested well throughout shift. He has been transitioned from DKA protocol r/t HHS to long-acting insulin with SSACHS. Patient is tolerating PO fluids. Adequate urinary output via urinal independently. Heart, lungs, and abdominal sounds WNL. Patient is a/o x3 and states he, feels so much better than when he came in. No acute needs or concerns voiced. ICU care continues
[2024-03-26 04:31] LABS: Chloride 103 mmol/L (98-107); Potassium 4.2 mmoL/L (3.5-5.1); Sodium 130 mmol/L (136-145)
[2024-03-26 04:34] LABS: Anion Gap 9.2 mEq/L (5-15); Blood Urea Nitrogen 43 mg/dl (9-20); Carbon Dioxide 22 mmol/L (22.0-30.0); Creatinine Clearance Estimated 72 mL/min (50-200); Estimated Glomerular Filt Rate 60 ml/min (>60); GFR (African American) 72 ML/MIN (>60)
[2024-03-26 04:35] LABS: Calcium 8.2 mg/dl (8.4-10.2); Glucose 214 mg/dl (74-100); Magnesium 2.3 mg/dl (1.6-2.3); Phosphorous 2.8 mg/dl (2.5-4.5)
--- NOTE | 2024-03-26 05:32 | PC.NURSE ---
Spoke to Salvatore CHAPMAN to downgrade from ICU
[2024-03-26] MEDS: humaLOG 100 UNITS/ML 10ML VIAL (SSI) SQ ×3 (06:06→16:51)
[2024-03-26 06:07] LABS: POC Glucose,Bedside 342 (70-110)
[2024-03-26] MEDS: METFORMIN 500MG TABLET 500 MG PO ×2 (07:28→16:51)
[2024-03-26] MEDS: INSULIN GLARGINE 100 UNITS/ML 10ML VIAL 10 UNIT SQ (08:01)
[2024-03-26 08:19] LABS: HCV Ab Non Reactive (Non Reactive)
--- NOTE | 2024-03-26 08:29 | PC.NURSE ---
PT STATED THE HAD HAD BEEN REQUESTING ORANGE JUICE THIS AM. THIS RN GAVE PT 1 JUICE AND EDUCATED PT THAT ORANGE JUICE WOULD RAISE HIS SUGAR. PT V/U. DIETARY CAME IN TO FILL OUT PT'S MENU AND HE REQUESTED MORE ORANGE JUICE AND DIETARY BROUGHT PT TWO MORE ORANGE JUICES.
[2024-03-26 08:32] LABS: Chloride 102 mmol/L (98-107); Potassium 4.2 mmoL/L (3.5-5.1); Sodium 129 mmol/L (136-145)
[2024-03-26 08:35] LABS: Anion Gap 11.2 mEq/L (5-15); Blood Urea Nitrogen 37 mg/dl (9-20); Carbon Dioxide 20 mmol/L (22.0-30.0); Creatinine Clearance Estimated 72 mL/min (50-200); Estimated Glomerular Filt Rate 60 ml/min (>60); GFR (African American) 72 ML/MIN (>60)
[2024-03-26 08:36] LABS: Calcium 7.9 mg/dl (8.4-10.2); Glucose 382 mg/dl (74-100); Magnesium 2.2 mg/dl (1.6-2.3)
--- NOTE | 2024-03-26 08:37 | HMH.PHAINT1 ---
Pharmacy Intervention Comments: Home medications verified using list from pharmacy and interview with patient.
[2024-03-26 08:56] LABS: Phosphorous 1.8 mg/dl (2.5-4.5)
[2024-03-26 09:00] LABS: Procalcitonin 0.088 ng/mL (0.0-2.0)
[2024-03-26] MEDS: EMPAGLIFLOZIN 10MG TABLET 10 MG PO (09:09)
[2024-03-26] MEDS: ENOXAPARIN 40MG/0.4ML SYRINGE 40 MG SQ (09:09)
[2024-03-26 10:53] LABS: POC Glucose,Bedside 291 (70-110)
[2024-03-26 12:27] LABS: Chloride 102 mmol/L (98-107); Sodium 129 mmol/L (136-145)
[2024-03-26 12:28] LABS: Potassium 4.4 mmoL/L (3.5-5.1)
[2024-03-26 12:30] LABS: Anion Gap 9.4 mEq/L (5-15); Blood Urea Nitrogen 34 mg/dl (9-20); Carbon Dioxide 22 mmol/L (22.0-30.0); Creatinine Clearance Estimated 79 mL/min (50-200); Estimated Glomerular Filt Rate 66 ml/min (>60); GFR (African American) 80 ML/MIN (>60)
[2024-03-26 12:31] LABS: Calcium 8.4 mg/dl (8.4-10.2); Glucose 234 mg/dl (74-100); Magnesium 2.3 mg/dl (1.6-2.3)
[2024-03-26 12:35] LABS: Phosphorous 1.8 mg/dl (2.5-4.5)
[2024-03-26] MEDS: SODIUM CHLORIDE 0.9% IV (13:26)
[2024-03-26] MEDS: SODIUM PHOSPHATE IV (13:26)
[2024-03-26 14:02] LABS: POC Glucose,Bedside 266 (70-110)
[2024-03-26 14:06] LABS: Basophils % 0.4 % (0.1-2.0); Eosinophils # 0.1 K/mm3 (0.0-0.4); Eosinophils % 0.8 % (0.1-12.0); Hemoglobin 15.6 g/dL (14.1-18.0); Lymphocytes # 2.2 K/mm3 (0.7-4.5); Lymphocytes % 20.5 % (10-50); Mean Corpuscular HGB Conc 35.4 g/dL (31.8-35.4); Mean Corpuscular Hemoglobin 31.8 pg (27.0-31.2); Mean Corpuscular Volume 89.9 fl (80-94); Mean Platelet Volume 7.7 fl (7.4-10.4); Monocytes # 0.6 K/mm3 (0.1-1.0); Monocytes % 5.1 % (1.7-9.3); Neutrophils # 7.9 K/mm3 (1.8-7.8); Neutrophils % 73.2 % (37.0-80.0); Platelet Count 235 K/mm3 (142-424); Red Blood Count 4.89 M/mm3 (4.60-6.20); Red Cell Distribution Width 13.1 % (11.5-17.5); White Blood Count 10.7 K/mm3 (4.8-10.8)
--- NOTE | 2024-03-26 15:07 | P.DS_ITS ---
General Admission date:: 03/25/24 HPI HPI HPI: Mr. Pfeiffer is a 69-year-old male with history of hypertension who presented to the ER because of concern for weakness, dry mouth, food not tasting good. States he was diagnosed with a pneumonia last week in the office by his PCP. Started on antibiotics and steroids. Last dose due today. Has just not felt well since. Increased shortness of breath. States he has been urinating freque ntly during the day and night. Has been very thirsty. On arrival to the ER, found to be tachycardic. Initial labs showing glucose greater than 800 with anion gap. Concern for HHS. Initiated on DKA/HHS protocol with insulin drip. Medicine consulted for admission and further management. On arrival to the floor, patient has received a liter of LR and is currently receiving his second liter. On insulin drip with improvement in glucose. States he is feeling somewhat better but still appears ill. Significant other is at bedside. Patient complaining of dry mouth and eating ice chips. Afeb rile. No nausea or vomiting. Denies chest pain or shortness of breath. Hospital Course Hospital Course Hospital Course: 69-year-old male with no known history of diabetes who presented with HHS. Discussed case with ER physician, request admission for insulin drip and further correction of his metabolic disturbances. I agreed to admit for further management. Showing some improvement in his glucose by the time of arrival to the floor though still elevated on fingerstick above 500. No nausea or vomiting. Stable on room air. A1c returned greater than 14, diagnostic for diabetes. Admitted to ICU for further management given significant metabolic disturbances and insulin drip protocol. Problems addressed as follows: Hyperosmolar hyperglycemic syndrome New diagnosis of diabetes Pseudohyponatremia - Initial glucose greater than 800, anion gap 23, sodium 120. A1c > 14. - Clinically improved with IV fluids, insulin drip. - Transitioned to Lantus 35 units nightly with LDSSI, Jardiance 10mg, metformin 500mg BID. - Blood sugars improved to 234, sodium 129. Patient feels much better, tolerating PO intake, ambulating independently. - Provided nutritional and insulin education, and encouraged maintaining good hydration with water. - Discharged with the above medications. Will follow-up with PCP within 3 days. LIBIA - BUN 62, creatinine 1.7. Improved to 1.10 near baseline after fluid resuscitation. Hypertension - Blood pressures stable during admission, 127/56. - Discontinued Lasix in the setting of HHS no history of HF. - Held losartan and spironolactone until follow-up with PCP. Exam Data for Last 24 hours Vital signs and Labs for Last 24 Hours: Temp Pulse Resp BP Pulse Ox O2 Del Method 97.6 F 87 18 127/56 L 94 L Room Air 03/26/24 12:00 03/26/24 12:00 03/26/24 12:00 03/26/24 12:00 03/26/24 12:00 03/26/24 13:00 Laboratory Results - last 24 hr 03/25/24 14:10: Total Counted 100, Neutrophils % (Manual) 80 H, Lymphocytes % (Manual) 12, Monocytes % (Manual) 7, Basophils % (Manual) 1.0, Platelet Estimate Normal, Anisocytosis 1+, Microcytosis 1+, Macrocytosis 1+, Carbon Dioxide 17 L, Anion Gap 23.4 H, BUN 62 H, Creatinine 1.70 H, Estimated Creat Clear 55, Estimated GFR 40 L, Est GFR ( Amer) 48 L, Glucose 832 H*, Calcium 9.7, Phosphorus 5.4 H, Magnesium 2.7 H, Total Bilirubin 1.0, AST 29, ALT 38, Alkaline Phosphatase 157 H, Troponin I < 0.01, NT-Pro-B Natriuret Pep 94.3, Total Protein 7.3, Globulin 2.9, Albumin/Globulin Ratio 1.5, TSH 0.35 L, Acetone Level None detected, Hepatitis C Antibody Non reactive, HIV 1&2 Antibody Rapid Nonreactive 03/25/24 15:35: VBG pH 7.40, VBG pCO2 25.9 L, VBG pO2 61.3 H, VBG HCO3 15.6 L, VBG Total CO2 16.4 L, VBG O2 Saturation 90.8 H, VBG Base Excess -9.2 L, VBG Lactic Acid 3.2 H 03/25/24 16:01: Sodium 121 L, Potassium 5.8 H, Chloride 89 L, Carbon Dioxide 17 L, Anion Gap 20.8 H, BUN 62 H, Creatinine 1.70 H, Estimated Creat Clear 55, Estimated GFR 40 L, Est GFR ( Amer) 48 L, Glucose 774 H*, Calcium 9.3, Phosphorus 5.2 H, Magnesium 2.7 H 03/25/24 17:59: POC Glucose 450 H* 03/25/24 18:23: Lactate 2.7 H, Troponin I 0.02 03/25/24 19:01: POC Glucose 393 H* 03/25/24 20:09: POC Glucose 369 H* 03/25/24 20:23: Sodium 128 L, Potassium 4.3 D, Chloride 100, Carbon Dioxide 20 L, Anion Gap 12.3, BUN 53 H, Creatinine 1.20 D, Estimated Creat Clear 78, Estimated GFR 60, Est GFR ( Amer) 72 D, Glucose 372 H D, Lactate 1.7, Calcium 8.5, Phosphorus 3.6 D, Magnesium 2.5 H, Troponin I < 0.01 03/25/24 21:09: POC Glucose 284 H 03/25/24 22:15: POC Glucose 234 H 03/25/24 23:17: POC Glucose 182 H 03/25/24 : Hemoglobin A1c > 14.0 H 03/26/24 00:10: POC Glucose 127 H 03/26/24 00:12: Sodium 128 L, Potassium 4.1, Chloride 104, Carbon Dioxide 25, Anion Gap 3.1 L, BUN 47 H, Creatinine 1.10, Estimated Creat Clear 85, Estimated GFR 66, Est GFR ( Amer) 80, Glucose 130 H D, Calcium 8.5, Phosphorus 2.9, Magnesium 2.4 H 03/26/24 00:42: Urine Color Yellow, Urine Appearance Clear, Urine pH 6.0, Ur Specific [place] 1.020, Urine Protein Negative, Urine Glucose (UA) 3+, Urine Ketones Negative, Urine Blood Negative, Urine Nitrate Negative, Urine Bilirubin Negative, Urine Urobilinogen 0.2, Ur Leukocyte Esterase Negative, Urine RBC None, Urine WBC None, Ur Squamous Epith Cells 3-5, Urine Bacteria Trace, Hyaline Casts Occasional 03/26/24 04:19: Sodium 130 L, Potassium 4.2, Chloride 103, Carbon Dioxide 22, Anion Gap 9.2, BUN 43 H, Creatinine 1.20, Estimated Creat Clear 72, Estimated GFR 60, Est GFR ( Amer) 72, Glucose 214 H D, Calcium 8.2 L, Phosphorus 2.8, Magnesium 2.3 03/26/24 06:00: POC Glucose 342 H* 03/26/24 08:09: Sodium 129 L, Potassium 4.2, Chloride 102, Carbon Dioxide 20 L, Anion Gap 11.2, BUN 37 H, Creatinine 1.20, Estimated Creat Clear 72, Estimated GFR 60, Est GFR ( Amer) 72, Glucose 382 H D, Calcium 7.9 L, Phosphorus 1.8 L D, Magnesium 2.2, Procalcitonin 0.088 03/26/24 10:44: POC Glucose 291 H 03/26/24 12:02: Sodium 129 L, Potassium 4.4, Chloride 102, Carbon Dioxide 22, Anion Gap 9.4, BUN 34 H, Creatinine 1.10, Estimated Creat Clear 79, Estimated GFR 66, Est GFR ( Amer) 80, Glucose 234 H D, Calcium 8.4, Phosphorus 1.8 L, Magnesium 2.3 03/26/24 13:38: WBC 10.7, RBC 4.89, Hgb 15.6, Hct 44.0, MCV 89.9, MCH 31.8 H, MCHC 35.4, RDW 13.1, Plt Count 235, MPV 7.7, Neut % (Auto) 73.2, Lymph % (Auto) 20.5, [place] % (Auto) 5.1, Eos % (Auto) 0.8, Baso % (Auto) 0.4, Neut # (Auto) 7.9 H, Lymph # (Auto) 2.2, [place] # (Auto) 0.6, Eos # (Auto) 0.1, Baso # (Auto) 0.0 03/26/24 13:54: POC Glucose 266 H I & O for Last 24 hours: Intake & Output 03/23/24 03/24/24 03/25/24 03/26/24 23:59 23:59 23:59 23:59 Intake Total 3659.642 / 3809.642 944.212 / 944.212 Output Total 1900 / 2400 1150 / 1150 Balance 1759.642 / 1409.642 -205.788 / -205.788 Weight 96.162 kg 89.22 kg Constitutional Constitutional: no acute distress *Routine HEENT Exam Head: Present normocephalic Eye: Present EOMI and PERRL ENT: Present mucous membranes moist *Routine Neck Exam Neck: Present supple; Absent lymphadenopathy *Routine Respiratory Exam Respiratory: Present CTA bilaterally *Routine Cardiovascular Exam Cardiovascular: Present RRR *Routine Abdominal Exam Abdominal: Present soft and normoactive bowel sounds; Absent tenderness *Routine Extremities Exam Extremities: Absent cyanosis, clubbing or edema *Routine Skin Exam Skin: Present warm; Absent rash *Routine Neurological Exam Neurological: Present alert and oriented X3 Results Data Completed and Pending Labs on day of discharge: Labs from last 24 hours 03/26/24 03/26/24 03/26/24 13:54 13:38 12:02 WBC 10.7 RBC 4.89 Hgb 15.6 Hct 44.0 MCV 89.9 MCH 31.8 H MCHC 35.4 RDW 13.1 Plt Count 235 MPV 7.7 Neut % (Auto) 73.2 Lymph % (Auto) 20.5 [place] % (Auto) 5.1 Eos % (Auto) 0.8 Baso % (Auto) 0.4 Neut # (Auto) 7.9 H Lymph # (Auto) 2.2 [place] # (Auto) 0.6 Eos # (Auto) 0.1 Baso # (Auto) 0.0 Total Counted Neutrophils % (Manual) Lymphocytes % (Manual) Monocytes % (Manual) Basophils % (Manual) Platelet Estimate Anisocytosis Microcytosis Macrocytosis VBG pH VBG pCO2 VBG pO2 VBG HCO3 VBG Total CO2 VBG O2 Saturation VBG Base Excess VBG Lactic Acid Sodium 129 L Potassium 4.4 Chloride 102 Carbon Dioxide 22 Anion Gap 9.4 BUN 34 H Creatinine 1.10 Estimated Creat Clear 79 Estimated GFR 66 Est GFR ( Amer) 80 Glucose 234 H D POC Glucose 266 H Hemoglobin A1c Lactate Calcium 8.4 Phosphorus 1.8 L Magnesium 2.3 Total Bilirubin AST ALT Alkaline Phosphatase Troponin I NT-Pro-B Natriuret Pep Total Protein Globulin Albumin/Globulin Ratio Procalcitonin TSH Urine Color Urine Appearance Urine pH Ur Specific [place] Urine Protein Urine Glucose (UA) Urine Ketones Urine Blood Urine Nitrate Urine Bilirubin Urine Urobilinogen Ur Leukocyte Esterase Urine RBC Urine WBC Ur Squamous Epith Cells Urine Bacteria Hyaline Casts Acetone Level Hepatitis C Antibody HIV 1&2 Antibody Rapid 03/26/24 03/26/24 03/26/24 10:44 08:09 06:00 WBC RBC Hgb Hct MCV MCH MCHC RDW Plt Count MPV Neut % (Auto) Lymph % (Auto) [place] % (Auto) Eos % (Auto) Baso % (Auto) Neut # (Auto) Lymph # (Auto) [place] # (Auto) Eos # (Auto) Baso # (Auto) Total Counted Neutrophils % (Manual) Lymphocytes % (Manual) Monocytes % (Manual) Basophils % (Manual) Platelet Estimate Anisocytosis Microcytosis Macrocytosis VBG pH VBG pCO2 VBG pO2 VBG HCO3 VBG Total CO2 VBG O2 Saturation VBG Base Excess VBG Lactic Acid Sodium 129 L Potassium 4.2 Chloride 102 Carbon Dioxide 20 L Anion Gap 11.2 BUN 37 H Creatinine 1.20 Estimated Creat Clear 72 Estimated GFR 60 Est GFR ( Amer) 72 Glucose 382 H D POC Glucose 291 H 342 H* Hemoglobin A1c Lactate Calcium 7.9 L Phosphorus 1.8 L D Magnesium 2.2 Total Bilirubin AST ALT Alkaline Phosphatase Troponin I NT-Pro-B Natriuret Pep Total Protein Globulin Albumin/Globulin Ratio Procalcitonin 0.088 TSH Urine Color Urine Appearance Urine pH Ur Specific [place] Urine Protein Urine Glucose (UA) Urine Ketones Urine Blood Urine Nitrate Urine Bilirubin Urine Urobilinogen Ur Leukocyte Esterase Urine RBC Urine WBC Ur Squamous Epith Cells Urine Bacteria Hyaline Casts Acetone Level Hepatitis C Antibody HIV 1&2 Antibody Rapid 03/26/24 03/26/24 03/26/24 04:19 00:42 00:12 WBC RBC Hgb Hct MCV MCH MCHC RDW Plt Count MPV Neut % (Auto) Lymph % (Auto) [place] % (Auto) Eos % (Auto) Baso % (Auto) Neut # (Auto) Lymph # (Auto) [place] # (Auto) Eos # (Auto) Baso # (Auto) Total Counted Neutrophils % (Manual) Lymphocytes % (Manual) Monocytes % (Manual) Basophils % (Manual) Platelet Estimate Anisocytosis Microcytosis Macrocytosis VBG pH VBG pCO2 VBG pO2 VBG HCO3 VBG Total CO2 VBG O2 Saturation VBG Base Excess VBG Lactic Acid Sodium 130 L 128 L Potassium 4.2 4.1 Chloride 103 104 Carbon Dioxide 22 25 Anion Gap 9.2 3.1 L BUN 43 H 47 H Creatinine 1.20 1.10 Estimated Creat Clear 72 85 Estimated GFR 60 66 Est GFR ( Amer) 72 80 Glucose 214 H D 130 H D POC Glucose Hemoglobin A1c Lactate Calcium 8.2 L 8.5 Phosphorus 2.8 2.9 Magnesium 2.3 2.4 H Total Bilirubin AST ALT Alkaline Phosphatase Troponin I NT-Pro-B Natriuret Pep Total Protein Globulin Albumin/Globulin Ratio Procalcitonin TSH Urine Color Yellow Urine Appearance Clear Urine pH 6.0 Ur Specific [place] 1.020 Urine Protein Negative Urine Glucose (UA) 3+ Urine Ketones Negative Urine Blood Negative Urine Nitrate Negative Urine Bilirubin Negative Urine Urobilinogen 0.2 Ur Leukocyte Esterase Negative Urine RBC None Urine WBC None Ur Squamous Epith Cells 3-5 Urine Bacteria Trace Hyaline Casts Occasional Acetone Level Hepatitis C Antibody HIV 1&2 Antibody Rapid 03/26/24 03/25/24 03/25/24 00:10 Unknown 23:17 WBC RBC Hgb Hct MCV MCH MCHC RDW Plt Count MPV Neut % (Auto) Lymph % (Auto) [place] % (Auto) Eos % (Auto) Baso % (Auto) Neut # (Auto) Lymph # (Auto) [place] # (Auto) Eos # (Auto) Baso # (Auto) Total Counted Neutrophils % (Manual) Lymphocytes % (Manual) Monocytes % (Manual) Basophils % (Manual) Platelet Estimate Anisocytosis Microcytosis Macrocytosis VBG pH VBG pCO2 VBG pO2 VBG HCO3 VBG Total CO2 VBG O2 Saturation VBG Base Excess VBG Lactic Acid Sodium Potassium Chloride Carbon Dioxide Anion Gap BUN Creatinine Estimated Creat Clear Estimated GFR Est GFR ( Amer) Glucose POC Glucose 127 H 182 H Hemoglobin A1c > 14.0 H Lactate Calcium Phosphorus Magnesium Total Bilirubin AST ALT Alkaline Phosphatase Troponin I NT-Pro-B Natriuret Pep Total Protein Globulin Albumin/Globulin Ratio Procalcitonin TSH Urine Color Urine Appearance Urine pH Ur Specific [place] Urine Protein Urine Glucose (UA) Urine Ketones Urine Blood Urine Nitrate Urine Bilirubin Urine Urobilinogen Ur Leukocyte Esterase Urine RBC Urine WBC Ur Squamous Epith Cells Urine Bacteria Hyaline Casts Acetone Level Hepatitis C Antibody HIV 1&2 Antibody Rapid 03/25/24 03/25/24 03/25/24 22:15 21:09 20:23 WBC RBC Hgb Hct MCV MCH MCHC RDW Plt Count MPV Neut % (Auto) Lymph % (Auto) [place] % (Auto) Eos % (Auto) Baso % (Auto) Neut # (Auto) Lymph # (Auto) [place] # (Auto) Eos # (Auto) Baso # (Auto) Total Counted Neutrophils % (Manual) Lymphocytes % (Manual) Monocytes % (Manual) Basophils % (Manual) Platelet Estimate Anisocytosis Microcytosis Macrocytosis VBG pH VBG pCO2 VBG pO2 VBG HCO3 VBG Total CO2 VBG O2 Saturation VBG Base Excess VBG Lactic Acid Sodium 128 L Potassium 4.3 D Chloride 100 Carbon Dioxide 20 L Anion Gap 12.3 BUN 53 H Creatinine 1.20 D Estimated Creat Clear 78 Estimated GFR 60 Est GFR ( Amer) 72 D Glucose 372 H D POC Glucose 234 H 284 H Hemoglobin A1c Lactate 1.7 Calcium 8.5 Phosphorus 3.6 D Magnesium 2.5 H Total Bilirubin AST ALT Alkaline Phosphatase Troponin I < 0.01 NT-Pro-B Natriuret Pep Total Protein Globulin Albumin/Globulin Ratio Procalcitonin TSH Urine Color Urine Appearance Urine pH Ur Specific [place] Urine Protein Urine Glucose (UA) Urine Ketones Urine Blood Urine Nitrate Urine Bilirubin Urine Urobilinogen Ur Leukocyte Esterase Urine RBC Urine WBC Ur Squamous Epith Cells Urine Bacteria Hyaline Casts Acetone Level Hepatitis C Antibody HIV 1&2 Antibody Rapid 03/25/24 03/25/24 03/25/24 20:09 19:01 18:23 WBC RBC Hgb Hct MCV MCH MCHC RDW Plt Count MPV Neut % (Auto) Lymph % (Auto) [place] % (Auto) Eos % (Auto) Baso % (Auto) Neut # (Auto) Lymph # (Auto) [place] # (Auto) Eos # (Auto) Baso # (Auto) Total Counted Neutrophils % (Manual) Lymphocytes % (Manual) Monocytes % (Manual) Basophils % (Manual) Platelet Estimate Anisocytosis Microcytosis Macrocytosis VBG pH VBG pCO2 VBG pO2 VBG HCO3 VBG Total CO2 VBG O2 Saturation VBG Base Excess VBG Lactic Acid Sodium Potassium Chloride Carbon Dioxide Anion Gap BUN Creatinine Estimated Creat Clear Estimated GFR Est GFR ( Amer) Glucose POC Glucose 369 H* 393 H* Hemoglobin A1c Lactate 2.7 H Calcium Phosphorus Magnesium Total Bilirubin AST ALT Alkaline Phosphatase Troponin I 0.02 NT-Pro-B Natriuret Pep Total Protein Globulin Albumin/Globulin Ratio Procalcitonin TSH Urine Color Urine Appearance Urine pH Ur Specific [place] Urine Protein Urine Glucose (UA) Urine Ketones Urine Blood Urine Nitrate Urine Bilirubin Urine Urobilinogen Ur Leukocyte Esterase Urine RBC Urine WBC Ur Squamous Epith Cells Urine Bacteria Hyaline Casts Acetone Level Hepatitis C Antibody HIV 1&2 Antibody Rapid 03/25/24 03/25/24 03/25/24 17:59 16:01 15:35 WBC RBC Hgb Hct MCV MCH MCHC RDW Plt Count MPV Neut % (Auto) Lymph % (Auto) [place] % (Auto) Eos % (Auto) Baso % (Auto) Neut # (Auto) Lymph # (Auto) [place] # (Auto) Eos # (Auto) Baso # (Auto) Total Counted Neutrophils % (Manual) Lymphocytes % (Manual) Monocytes % (Manual) Basophils % (Manual) Platelet Estimate Anisocytosis Microcytosis Macrocytosis VBG pH 7.40 VBG pCO2 25.9 L VBG pO2 61.3 H VBG HCO3 15.6 L VBG Total CO2 16.4 L VBG O2 Saturation 90.8 H VBG Base Excess -9.2 L VBG Lactic Acid 3.2 H Sodium 121 L Potassium 5.8 H Chloride 89 L Carbon Dioxide 17 L Anion Gap 20.8 H BUN 62 H Creatinine 1.70 H Estimated Creat Clear 55 Estimated GFR 40 L Est GFR ( Amer) 48 L Glucose 774 H* POC Glucose 450 H* Hemoglobin A1c Lactate Calcium 9.3 Phosphorus 5.2 H Magnesium 2.7 H Total Bilirubin AST ALT Alkaline Phosphatase Troponin I NT-Pro-B Natriuret Pep Total Protein Globulin Albumin/Globulin Ratio Procalcitonin TSH Urine Color Urine Appearance Urine pH Ur Specific [place] Urine Protein Urine Glucose (UA) Urine Ketones Urine Blood Urine Nitrate Urine Bilirubin Urine Urobilinogen Ur Leukocyte Esterase Urine RBC Urine WBC Ur Squamous Epith Cells Urine Bacteria Hyaline Casts Acetone Level Hepatitis C Antibody HIV 1&2 Antibody Rapid 03/25/24 14:10 WBC RBC Hgb Hct MCV MCH MCHC RDW Plt Count MPV Neut % (Auto) Lymph % (Auto) [place] % (Auto) Eos % (Auto) Baso % (Auto) Neut # (Auto) Lymph # (Auto) [place] # (Auto) Eos # (Auto) Baso # (Auto) Total Counted 100 Neutrophils % (Manual) 80 H Lymphocytes % (Manual) 12 Monocytes % (Manual) 7 Basophils % (Manual) 1.0 Platelet Estimate Normal Anisocytosis 1+ Microcytosis 1+ Macrocytosis 1+ VBG pH VBG pCO2 VBG pO2 VBG HCO3 VBG Total CO2 VBG O2 Saturation VBG Base Excess VBG Lactic Acid Sodium Potassium Chloride Carbon Dioxide 17 L Anion Gap 23.4 H BUN 62 H Creatinine 1.70 H Estimated Creat Clear 55 Estimated GFR 40 L Est GFR ( Amer) 48 L Glucose 832 H* POC Glucose Hemoglobin A1c Lactate Calcium 9.7 Phosphorus 5.4 H Magnesium 2.7 H Total Bilirubin 1.0 AST 29 ALT 38 Alkaline Phosphatase 157 H Troponin I < 0.01 NT-Pro-B Natriuret Pep 94.3 Total Protein 7.3 Globulin 2.9 Albumin/Globulin Ratio 1.5 Procalcitonin TSH 0.35 L Urine Color Urine Appearance Urine pH Ur Specific [place] Urine Protein Urine Glucose (UA) Urine Ketones Urine Blood Urine Nitrate Urine Bilirubin Urine Urobilinogen Ur Leukocyte Esterase Urine RBC Urine WBC Ur Squamous Epith Cells Urine Bacteria Hyaline Casts Acetone Level None detected Hepatitis C Antibody Non reactive HIV 1&2 Antibody Rapid Nonreactive DS: Diagnosis Discharge Diagnosis (1) Hyperosmolar hyperglycemic state (HHS): Status: Acute Code(s): E11.00 - Type 2 diabetes mellitus with hyperosmolarity without nonketotic hyperglycemic-hyperosmolar coma ([facility]) (2) Newly diagnosed diabetes: Status: Acute Code(s): E11.9 - Type 2 diabetes mellitus without complications (3) Hyponatremia: Status: Acute Code(s): E87.1 - Hypo-osmolality and hyponatremia (4) LIBIA (acute kidney injury): Status: Acute Code(s): N17.9 - Acute kidney failure, unspecified (5) Hypertension: Status: Chronic Code(s): I10 - Essential (primary) hypertension Meds Home Medications and Allergies Home Medications ?Medication ?Instructions ?Recorded ?Confirmed ?Type blood sugar diagnostic (Blood #50 ea 03/26/24 03/28/24 Rx Glucose Test strips) blood-glucose meter (Accu-Chek #1 ea 03/26/24 03/28/24 Rx Guide Glucose Meter) empagliflozin 10 mg tablet 10 mg PO DAILY #30 tabs 03/26/24 03/28/24 Rx (Jardiance) insulin glargine 100 unit/mL (3 35 unit (0.35 mL) SQ HS #12 mL 03/26/24 03/28/24 Rx mL) subcutaneous pen (Lantus Solostar U-100 Insulin) insulin lispro 100 unit/mL 1 sliding scale dose SQ ACHS #10 mL 03/26/24 03/28/24 Rx subcutaneous solution (Humalog U-100 Insulin) insulin syringe,safety needle 0.3 #100 ea 03/26/24 03/28/24 Rx mL 29 gauge x 1/2 lancets #100 ea 03/26/24 03/28/24 Rx losartan 100 mg tablet 100 mg PO DAILY 03/26/24 03/28/24 History metformin 500 mg tablet 500 mg PO BIDWMEAL 30 days #60 tabs 03/26/24 03/28/24 Rx metoprolol succinate 25 mg 25 mg PO DAILY 03/26/24 03/28/24 History tablet,extended release 24 hr pen needle, diabetic 29 gauge x #100 ea 03/26/24 03/28/24 Rx 1/2 (Pen Needle) promethazine-DM 6.25 mg-15 mg/5 mL 5 ml PO Q6H PRN Nausea And Vomiting 03/26/24 03/28/24 History oral syrup spironolactone 25 mg tablet 25 mg PO DAILY 03/26/24 03/28/24 History aspirin 81 mg tablet,delayed 81 mg PO DAILY 03/28/24 03/28/24 History release (Adult Low Dose Aspirin) atorvastatin 40 mg tablet 40 mg PO DAILY #90 tabs 03/28/24 03/28/24 Rx furosemide 20 mg tablet 20 mg PO DAILY 03/28/24 03/28/24 History loratadine 10 mg tablet 10 mg PO DAILY PRN Allergy symptoms 03/28/24 03/28/24 History semaglutide 0.25 mg or 0.5 mg (2 0.25 mg (0.368 mL) SQ WEEKLY #3 mL 03/28/24 03/28/24 Rx mg/3 mL) subcutaneous pen injector (Ozempic) New Prescriptions to Start Prescriptions: blood sugar diagnostic [Blood Glucose Test] Adam Gramajo blood-glucose meter [Accu-Chek Guide Glucose Meter] Adam Gramajo empagliflozin [Jardiance] Adam Gramajo insulin glargine [Lantus Solostar U-100 Insulin] Adam Gramajo insulin lispro [Humalog U-100 Insulin] Adam Gramajo insulin syringe,safety needle Adam Gramajo lancets Adam Gramajo metformin [place],Adam pen needle, diabetic [Pen Needle] Adam Gramajo Allergies Allergy/AdvReac Type Severity Reaction Status Date / Time No Known Allergies Allergy Verified 03/25/24 14:13 Discharge Plan Disposition Patient Disposition: Home, Self-Care Condition: Fair Follow up Plan Follow up with: Ronny Case DO [Staff Physician] - 03/28/24 3:00 pm Prescriptions/Medication Reconciliation: New insulin lispro [Humalog U-100 Insulin] 100 unit/mL Solution 1 sliding scale dose SQ ACHS Qty: 10 0RF Rx Instructions: Insulin Corrective Low-Dose Regimen Fingerstick Blood Glucose Insulin Units 151-200 mg/dl 2 unit/SQ 201-250 mg/dl 4 units/SQ 251-300 mg/dl 6 units/SQ 301-350 mg/dl 8 units/SQ 351-400 mg/dl 10 units/SQ 401-450 mg/dl 12 units/SQ > 450 mg/dl CALL insulin glargine [Lantus Solostar U-100 Insulin] 100 unit/mL (3 mL) Insulin Pen 35 unit SQ HS Qty: 12 0RF Jardiance 10 mg Tablet 10 mg PO DAILY Qty: 30 0RF metformin 500 mg Tablet 500 mg PO BIDWMEAL 30 Days Qty: 60 0RF (DME) blood-glucose meter [Accu-Chek Guide Glucose Meter] Misc See Rx Instructions .Route Qty: 1 0RF Rx Instructions: As directed (DME) insulin syringe,safety needle 0.3 mL 29 gauge x 1/2 syringe See Rx Instructions .Route Qty: 100 0RF Rx Instructions: As directed (DME) pen needle, diabetic [Pen Needle] 29 gauge x 1/2 needle See Rx Instructions .Route Qty: 100 0RF Rx Instructions: As directed (DME) Blood Glucose Test Strip See Rx Instructions .Route Qty: 50 0RF Rx Instructions: As directed (DME) lancets Misc See Rx Instructions .Route Qty: 100 0RF Rx Instructions: As directed Continued promethazine-DM 6.25-15 mg/5 mL syrup 5 ml PO Q6H PRN (Reason: Nausea And Vomiting) Patient Comments: 5 ML BY MOUTH EVERY 6 HOURS NEEDED FOR 10 DAYS metoprolol succinate 25 mg tablet extended release 24 hr 25 mg PO DAILY Patient Comments: TAKE 1 TABLET BY MOUTH EVERY DAY Held spironolactone 25 mg tablet 25 mg PO DAILY Hold Instructions: Resume on 04/02/24. Please speak to your PCP regarding this medication as her blood pressures have been normal during hospitalization. Check your blood pressures at home. Patient Comments: TAKE 1 TABLET BY MOUTH EVERY DAY losartan 100 mg Tablet 100 mg PO DAILY Hold Instructions: Resume on 04/02/24. Please speak to your PCP regarding this medication as her blood pressures have been normal during hospitalization. Check your blood pressures at home. Restart taking this medication if your blood pressure at home is greater than 150/90. Discontinued furosemide 20 mg tablet 20 mg PO DAILY Patient Comments: TAKE 1 TABLET BY MOUTH EVERY DAY No Action aspirin [Adult Low Dose Aspirin] 81 mg tablet,delayed release (DR/EC) 81 mg PO DAILY furosemide 20 mg tablet 20 mg PO DAILY Patient Comments: TAKE 1 TABLET BY MOUTH EVERY DAY atorvastatin 40 mg tablet 40 mg PO DAILY Qty: 90 1RF Ozempic 0.25 mg or 0.5 mg (2 mg/3 mL) pen injector 0.25 mg SQ WEEKLY Qty: 3 0RF Rx Instructions: for 4 weeks loratadine 10 mg tablet 10 mg PO DAILY PRN (Reason: Allergy symptoms) Problem Reconciliation Problems Reviewed?: Yes Patient Discharge Instructions Patient Instructions: How to Check Your Blood Glucose, How to Take Care of Your Feet If You Have Diabetes, Lifestyle Changes as Effective as Drugs in Preventing Progression to Diabet, 'Diet Plate' May Help People With Diabetes Lose Weight, Low-Carbohydrate Diet (Alternative Therapy), DI for Diabetes Type 2, Diabetic Ketoacidosis, Insulin Types, How to Use an Insulin Pen Print Language: [place]ian Providers Primary Care Provider: Shravan Damon Provider: Dawit Maxwell Attending Provider: Dawit Maxwell
[2024-03-26 17:02] LABS: POC Glucose,Bedside 279 (70-110)
--- NOTE | 2024-03-27 10:17 | CARE MANAGER ---
Spoke with patient related to hospital discharge. 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 He is trying to get ahold of his insurance company and is calling the back of the card number. He wants to discuss the costs of his medications. Patient reports a little over 100 dollars for prescriptions yesterday. I could not identify any additional resources for the cost of his medication. He is aware of his follow up appointments. Denies any other questions or concerns. NIGEL Castle
[2024-03-29 11:32] LABS: POC Glucose,Bedside 554 (70-110)
== END 2024-03-26 18:02 | disposition home or self-care (01) ==
LOC: ER 15:58 → 2ND 16:09
PROVIDERS: Physician Assistant; Student in an Organized Health Care Education/Training Program; Admitting Provider Internal Medicine Adolescent Medicine; Emergency Provider Emergency Medicine; PCP Internal Medicine Adolescent Medicine; Visit Provider Internal Medicine Adolescent Medicine
DX: E11.00 Type 2 diabetes mellitus with hyperosmolarity without nonketotic hyperglycemic-hyperosmolar coma (NKHHC) (principal); E87.1 Hypo-osmolality and hyponatremia; N17.9 Acute kidney failure, unspecified; I10 Essential (primary) hypertension; F17.290 Nicotine dependence, other tobacco product, uncomplicated; Z79.4 Long term (current) use of insulin; Z79.85 Long-term (current) use of injectable non-insulin antidiabetic drugs; Z79.899 Other long term (current) drug therapy; Z95.5 Presence of coronary angioplasty implant and graft; I25.10 Atherosclerotic heart disease of native coronary artery without angina pectoris
CPT/HCPCS: 36415; 71046; 80048; 80053; 81001; 82009; 82803; 82962; 83036; 83605; 83735; 83880; 84100; 84145; 84443; 84484; 85007; 85025; 85027; 86803; 87040; 87086; 87389; 93005; 99291; G0378; J1650; J7030

== ENCOUNTER 2024-07-02 11:36 | Outpatient (CLI) | payer MEDICARE, SELFPAY ==
[2024-07-02 18:31] LABS: Hemoglobin A1C 5.7 % (4.0-6.0)
== END 2024-07-02 23:59 | disposition home or self-care (01) ==
LOC: LAB.DROPOF 07-03 12:05
PROVIDERS: PCP Internal Medicine; Visit Provider Internal Medicine
DX: E11.9 Type 2 diabetes mellitus without complications (principal)
CPT/HCPCS: 83036

== ENCOUNTER 2024-08-14 11:52 | Outpatient (CLI) | payer MEDICARE, SELFPAY ==
--- NOTE | 2024-08-14 11:56 | XR_ITS ---
FINAL REPORT CLINICAL HISTORY: Reduced saturation COMPARISON: 02/02/2022 FINDINGS: 2 views of the chest were obtained . The heart is normal in size. The mediastinum is within normal limits. The lungs are clear. There is no pneumothorax. Osseous structures are unremarkable. IMPRESSION: No acute cardiopulmonary process. Reviewed, Interpreted and Dictated by Tamanna Whitten MD Transcribed by Miriam Anderson Authenticated and . [facility]
[2024-08-14 13:06] LABS: Basophils # 0.1 K/mm3 (0-0.2); Basophils % 0.8 % (0.1-2.0); Eosinophils # 0.4 K/mm3 (0.0-0.4); Eosinophils % 6.7 % (0.1-12.0); Hemoglobin 16.1 g/dL (14.1-18.0); Lymphocytes # 1.4 K/mm3 (0.7-4.5); Lymphocytes % 23.2 % (10-50); Mean Corpuscular HGB Conc 32.9 g/dL (31.8-35.4); Mean Corpuscular Hemoglobin 28.6 pg (27.0-31.2); Mean Platelet Volume 9.5 fl (7.4-10.4); Monocytes # 0.5 K/mm3 (0.1-1.0); Monocytes % 7.9 % (1.7-9.3); Neutrophils # 3.7 K/mm3 (1.8-7.8); Neutrophils % 61.2 % (37.0-80.0); Platelet Count 224 K/mm3 (142-424); Red Blood Count 5.63 M/mm3 (4.60-6.20); Red Cell Distribution Width 13.9 % (11.5-17.5); White Blood Count 6.1 K/mm3 (4.8-10.8)
[2024-08-14 13:41] LABS: Albumin Level 4.3 g/dl (3.5-5.0); Chloride 102 mmol/L (98-107)
[2024-08-14 13:42] LABS: Potassium 3.9 mmoL/L (3.5-5.1); Sodium 137 mmol/L (136-145)
[2024-08-14 13:44] LABS: Alanine Aminotransferase 21 U/L (12-78); Alkaline Phosphatase 133 U/L (38-126); Anion Gap 13.9 mEq/L (5-15); Aspartate Amino Transferase 22 U/L (17-59); Bilirubin,Total 0.7 mg/dl (0.2-1.3); Blood Urea Nitrogen 16 mg/dl (9-20); Carbon Dioxide 25 mmol/L (22.0-30.0); Estimated Glomerular Filt Rate 66 ml/min (>60); GFR (African American) 80 ML/MIN (>60); Globulin 2.2 g/dL (1.3-3.2); Total Protein,Serum 6.5 g/dl (6.3-8.2)
[2024-08-14 13:45] LABS: Glucose 87 mg/dl (74-100)
== END 2024-08-14 23:59 | disposition home or self-care (01) ==
LOC: RAD 11:54
PROVIDERS: PCP Internal Medicine; Visit Provider Internal Medicine
DX: J18.9 Pneumonia, unspecified organism (principal)
CPT/HCPCS: 71046; 80053; 85025